=== PATIENT | male | born 1960 | race Caucasian/White ===

== ENCOUNTER 2023-01-11 06:21 | Emergency (ER) | payer MEDICARE, SELFPAY ==
[2023-01-11 06:22] VITALS: BP 102/62; PULSE 95; RESP 16; TEMP 37.1; O2SAT 95; BMI 37.0
--- NOTE | 2023-01-11 07:14 | VDLE_ITS ---
Reason For Study: BLE Edema RIGHT LEFT GSV is normal. GSV is normal. CFV is compressible, spontaneous, phasic, CFV is compressible, spontaneous, phasic, competent and demonstrates normal competent, and demonstrates normal augmentation. augmentation. FV is compressible, phasic, and INCOMPETENT FV is compressible, spontaneous, phasic, for greater than 1.0 second. competent and demonstrates normal POP V is compressible, spontaneous, phasic, augmentation. competent and demonstrates normal POP V is compressible, spontaneous, phasic, augmentation. competent and demonstrates normal T/P Trunk is compressible. augmentation. PTV is compressible. T/P Trunk is compressible. RT PerV is compressible. PTV is compressible. Pitting edema noted in Rt Calf. LT PerV is compressible. Procedure Pitting edema noted in Lt Calf. This is a venous duplex using B-mode, color flow and spectral Doppler. Exam performed portable in ED. The study was technically difficult. A preliminary report was called and/or faxed to ED TIER[facility] Ye. VL/Venous Duplex US - Gabriel Extrem Interpretation Summary No evidence for acute deep venous thrombosis bilateral lower extremities with p atent and compressible bilateral great saphenous veins. Incompetency of the right femoral vein noted. Edema noted bilateral calves Ordering Physician: Juan Hollins Referring Physician: Vj Centeno Performed By: Damien Ayala RVT
--- NOTE | 2023-01-11 07:14 | EKG12_ITS ---
Test Reason : Blood Pressure : / mmHG Vent. Rate : 077 BPM Atrial Rate : 077 BPM P-R Int : 166 ms QRS Dur : 158 ms QT Int : 442 ms P-R-T Axes : 037 024 187 degrees QTc Int : 500 ms Normal sinus rhythm with sinus arrhythmia Left bundle branch block Abnormal ECG Confirmed by PAULETTE TYSON, ILIA ([id number]), index editor MARYJANE LAZARO ([id number]) on 01/13/2023 1:11:00 PM Referred By: Confirmed By:ILIA CALDWELL MD
--- NOTE | 2023-01-11 07:16 | EDS_ITS ---
HPI History of Present Illness Chief Complaint: Edema Informant: patient and spouse/S.O. Narrative Narrative: 62-year-old male presenting to the emergency room with bilateral leg swelling. Patient has not really gotten any of his care here before. He has an extensive medical history. In brief he is a paraplegic with no sensation from the chest down. He has undergone multiple surgeries through [facility] and [facility] in [place]. He states that beginning last he noticed some swelling along some surgical incisions of the right posterior leg. This is now progressed to both legs and he feels that his abdomen is swollen which when he sits up is constricting his breathing. He notes he still laying flat at night. He has a Aguayo catheter and that he replaced this morning. He states that the urine has been may be less than normal. He thought perhaps this was infection so last Monday began taking Bactrim that he had leftover at home. He notes normal bowel movements. He denies a history of CHF and he denies any recent fevers. He has a couple chronic wounds that are being packed from prior surgeries on the right side of his abdomen leg. He does take chlorthalidone as he states that 2 years ago he had some mild swelling of his legs. He is on 25 mg once a day. He notes that his legs are twice the size of normal. The coloring of the right leg is very white which he states is chronic. He notes that the left lower leg is more red than normal. [facility] Medical History Accident at workplace Paraplegia, unspecified Presence of implanted infusion pump Home Medications amlodipine 10 mg tablet 10 mg PO DAILY 01/11/23 [History Last Taken Unknown] baclofen 10 mg tablet 5 mg PO BID 01/11/23 [History Last Taken Unknown] chlorthalidone 25 mg tablet 25 mg PO DAILY 01/11/23 [History Last Taken Unknown] diazepam 5 mg tablet 5 mg PO QHS PRN sleep 01/11/23 [History Last Taken Unknown] famotidine 40 mg tablet 20 mg PO DAILY 01/11/23 [History Last Taken Unknown] gabapentin 100 mg capsule 200 mg PO BID 01/11/23 [History Last Taken Unknown] silver sulfadiazine 1 % topical cream 1 applic topical DAILY 01/11/23 [History Last Taken Unknown] tizanidine 2 mg tablet 2 mg PO BID 01/11/23 [History Last Taken Unknown] tramadol 50 mg tablet 50 mg PO BID 01/11/23 [History Last Taken Unknown] Allergy/AdvReac Type Severity Reaction Status Date / Time No Known Allergies Allergy Verified 01/11/23 06:34 Social History Smoking Status: Never smoker ROS ROS ED Constitutional Constitutional ED: Denies chills or weight loss Eyes Eyes: Denies change in vision or diplopia ENT ENT ED: Denies ear pain, rhinorrhea or sore throat Cardiovascular Cardiovascular: Denies chest pain, orthopnea, palpitations or racing heartbeat Respiratory/Chest Respiratory/Chest: Reports dyspnea; Denies cough or orthopnea Gastrointestinal Gastrointestinal: Denies abdominal pain, diarrhea, nausea or vomiting Genitourinary Genitourinary ED: Denies dysuria, hematuria or urinary frequency Musculoskeletal Musculoskeletal: Reports other Details: Lower extremity swelling ; Denies arthralgias or myalgias Integumentary Denies abscess or rash Neurologic Neurologic: Denies headache(s) or weakness Psychiatric Psychiatric: Denies anxiety, depression, suicidal ideation or suicidal thoughts Endocrine Endocrinology: Denies polydipsia, polyphagia or polyuria Allergic/Immunologic Allergic/Immunologic ED: Denies mouth swelling, tongue swelling or urticaria EXAM Physical Exam Const Vital Signs: 01/11/23 06:22 01/11/23 06:27 Temperature 98.7 F Temperature Source Oral Pulse Rate 95 Respiratory Rate 16 Respiratory Effort Normal Blood Pressure 102/62 Blood Pressure Mean 75 Pulse Ox 95 Oxygen Delivery Method Room Air Positive well nourished, well developed and obese General Appearance ED: well developed Nutritional Appearance: obese HEENT Reports normocephalic, head/scalp atraumatic and moist mucous membranes Eyes PERRL and EOMs intact bilaterally Neck no lymphadenopathy, supple and no JVD Resp normal respiratory effort and clear to auscultation bilaterally Cardio regular rate, regular rhythm and no murmurs GI normal to inspection, nondistended, normoactive bowel sounds and non-tender Palpation: soft Back/Spine no CVA tenderness and normal ROM Extremity Extremity Narrative: The right leg is white compared to the left but again he states that this is ch ronic. It is warm to the touch. The left leg shows some erythema that does not resolve with elevation however it does appear to be more capillary/petechial then erythema female from infection. He has chronic wounds on the right leg and the right abdomen. There is edema posteriorly noted. Do not see anasarca tissue changes of the abdomen. There is no scrotal edema. General Extremety ED: Yes edema General Extremity: edema bilateral Neuro oriented x3 and CN's II-XII intact bilaterally Sensorium / Orientation: alert Psych mental status grossly normal Mood & Affect: Negative for depressed or tearful Skin no rashes or lesions noted MDM MDM MDM Narrative Medical decision making narrative: Blood work including beta natruretic peptide and troponin chest x-ray EKG were ordered. Urinalysis will be sent and duplex ultrasound will be obtained. Care of the patient will be turned over to the daytime physician Dr. Pablo for check of labs and final disposition. Discharge Plan Triage Chief Complaint: Edema ED Provider: Juan Hollins Dx/Rx/DC Orders Prescriptions: No Action amlodipine 10 mg tablet 10 mg PO DAILY Patient Comments: TAKE ONE TABLET BY MOUTH ONCE DAILY baclofen 10 mg tablet 5 mg PO BID Patient Comments: TAKE 1/2 TABLET BY MOUTH TWICE DAILY chlorthalidone 25 mg tablet 25 mg PO DAILY Patient Comments: TAKE ONE TABLET BY MOUTH ONCE DAILY diazepam 5 mg tablet 5 mg PO QHS PRN (Reason: sleep) Patient Comments: TAKE ONE TABLET BY MOUTH ONCE DAILY NEEDED famotidine 40 mg tablet 20 mg PO DAILY Patient Comments: TAKE ONE TABLET BY MOUTH DAILY AT BEDTIME gabapentin 100 mg capsule 200 mg PO BID Patient Comments: TAKE TWO CAPSULES BY MOUTH TWICE DAILY silver sulfadiazine 1 % cream 1 applic TOPICAL DAILY Patient Comments: APPLY TO THE AFFECTED AREA(S) ONCE DAILY FOR 21 DAYS tizanidine 2 mg tablet 2 mg PO BID Patient Comments: TAKE ONE TABLET BY MOUTH TWICE DAILY tramadol 50 mg tablet 50 mg PO BID Patient Comments: TAKE ONE TABLET BY MOUTH TWICE DAILY NEEDED FOR PAIN FOR UP TO 90 DAYS Primary Care Provider: Vj Centeno Referrals: Vj Centeno MD [Primary Care Provider] -
[2023-01-11 07:35] LABS: Absolute Lymphocyte Count 0.96 X10^3/uL (0.83-4.51); Absolute Neutrophil Count 10.2 X10^3/uL (2.0-7.7); Basophil# 0.03 X10^3/uL; Basophil% 0.3 % (0-1); Eosinophil# 0.12 X10^3/uL; Hematocrit 26.9 % (40-54); Hemoglobin 8.2 g/dL (13.0-16.5); Lymphocyte # 0.96 X10^3/ul (0.83-4.51); Mean Corp Hgb Conc 30.5 g/dL (32-36); Mean Corpuscular Hgb 26.6 pg (27.0-32.0); Mean Corpuscular Volume 87.3 fL (80-94); Mean Platelet Vol. 9.4 fl (6.2-12.0); Monocyte# 0.34 X10^3/uL; Monocyte% 2.8 % (0-10); NRBC Flagged by Analyzer 0.3 % (0-5); Neutrophil # 10.21 X10^3/uL (2.7-7.7); Neutrophil % 85.6 % (47-70); Platelet Count 390 K/mm3 (150-450); RBC Distribution Width CV 19.9 % (11.6-14.6); RBC Distribution Width SD 63.7 fl (35.1-43.9); Red Blood Count 3.08 M/mm3 (4.6-6.2); White Blood Count 11.9 K/mm3 (4.4-11.0)
--- NOTE | 2023-01-11 07:56 | RAD_ITS ---
STUDY: X-RAY CHEST REASON FOR EXAM: Male, 62 years old. Dyspnea TECHNIQUE: Single AP portable view of the chest. COMPARISON: None. FINDINGS: EKG electrodes are seen. Mild degree of vascular congestion. There is no demonstrated pleural abnormality. Normal size heart. Normal mediastinum and alysa. Normal visualized pulmonary arteries. There is atherosclerotic tortuosity of the aortic arch and descending thoracic aorta. Normal visualized thoracic spine. Normal visualized ribs, clavicles, and shoulders. Hiatal hernia. RAD/Chest 1 View (Portable) IMPRESSION: Mild degree of vascular congestion. Electronically Signed: Joseph Flores MD at 8:17 EDT ,
--- NOTE | 2023-01-11 07:57 | ED.RN ---
Leg bag removed and new haddad bag applied. Urine obtained and sent to lab.
[2023-01-11 08:02] LABS: Bacteria 0 SEEN /hpf (None Seen); Mucous, Urine 0 SEEN /hpf (<or=2+)
[2023-01-11 08:07] LABS: Color, Urine Yellow (Yellow); Glucose, Dipstick Normal (Normal); Ketone-Dipstick Negative (Negative); Leukocyte Esterase-Dipstick 100 /ul (Negative); Nitrite-Dipstick Negative (Negative); Occult Blood-Urine 10 /ul (Negative); Protein-Dipstick 30 mg/dl (Negative); Urine Bilirubin Dipstick Negative (Negative); Urine Clarity Clear (Clear); Urine Urobilinogen 8 mg/dl (Normal)
[2023-01-11 08:16] LABS: Red Blood Cells-Urine 0-5 SEEN /hpf (0-5); Squamous Epithelial Cells - UA 0-5 SEEN /hpf (0-5); White Blood Cells 10-25 SEEN /hpf (0-5)
[2023-01-11 08:19] LABS: AST(SGOT) 28 U/L (15-37); Alanine Aminotransfer ALT/SGPT 32 U/L (16-61); Albumin, Serum 1.8 g/dL (3.2-5.0); Alkaline Phosphatase 93 U/L (45-117); Anion Gap 9 (5-15); BUN 51 mg/dL (7-18); BUN/Creat Ratio 28.3 RATIO (10-20); Bilirubin, Direct 0.06 mg/dL (0.00-0.30); Calcium,Total 9.7 mg/dL (8.5-10.1); Chloride 100 mmol/L (98-107); EST Glomerular Filtration Rate 41 mL/min (>60); Est Glom Filt Rate - Afr Amer 49 mL/min (>60); Globulin 4.7 g/dL (2.2-4.2); Glucose 84 mg/dL (74-106); Protein, Total 6.5 g/dL (6.4-8.2); Sodium Level 137 mmol/L (136-145); Troponin-I HS 25 pg/mL (3.0-78.0)
[2023-01-11 08:33] LABS: BNP,B-Type NATRIURETIC PEPTIDE 111.3 pg/mL (0-100)
[2023-01-11] MEDS: Furosemide 40 MG/4 ML Vial IV (09:39)
[2023-01-11 09:40] VITALS: BP 119/57; PULSE 16; RESP 12; O2SAT 98
== END 2023-01-11 09:41 | disposition home or self-care (01) ==
PROVIDERS: Emergency Provider Emergency Medicine; PCP Family Medicine; Visit Provider Emergency Medicine
DX: M79.89 Other specified soft tissue disorders (principal); I50.9 Heart failure, unspecified; E66.9 Obesity, unspecified; Z79.899 Other long term (current) drug therapy
CPT/HCPCS: 71045; 80048; 80076; 81001; 83880; 84484; 85025; 93005; 93970; 96374; 99284; A4216; J1940

== ENCOUNTER 2023-01-14 20:26 | Inpatient (IN) | payer MEDICARE, SELFPAY ==
[2023-01-14 20:27] VITALS: BP 119/69; PULSE 117; RESP 20; TEMP 36.6; O2SAT 97
--- NOTE | 2023-01-14 21:07 | EX.ED.DYSGE1 ---
HPI History of Present Illness Chief Complaint: Edema Narrative Narrative: Patient presents with bilateral lower extremity edema. He was seen recently ruled out for DVT and CHF given Lasix and sent home incidentally he did have hypoalbuminemia. He is unfortunate paraplegic for 30 years who usually transfers relatively well in and out of chairs but because of his edema and weakness. [facility] Medical History Accident at workplace Paraplegia, unspecified Presence of implanted infusion pump Home Medications amlodipine 10 mg tablet 10 mg PO DAILY 01/11/23 [History Last Taken Unknown] baclofen 10 mg tablet 5 mg PO BID 01/11/23 [History Last Taken Unknown] chlorthalidone 25 mg tablet 25 mg PO DAILY 01/11/23 [History Last Taken Unknown] diazepam 5 mg tablet 5 mg PO QHS PRN sleep 01/11/23 [History Last Taken Unknown] famotidine 40 mg tablet 20 mg PO DAILY 01/11/23 [History Last Taken Unknown] furosemide 40 mg tablet (Lasix) 40 mg PO DAILY #4 tabs 01/11/23 [Rx Last Taken Unknown] gabapentin 100 mg capsule 200 mg PO BID 01/11/23 [History Last Taken Unknown] silver sulfadiazine 1 % topical cream 1 applic topical DAILY 01/11/23 [History Last Taken Unknown] tizanidine 2 mg tablet 2 mg PO BID 01/11/23 [History Last Taken Unknown] tramadol 50 mg tablet 50 mg PO BID 01/11/23 [History Last Taken Unknown] Allergy/AdvReac Type Severity Reaction Status Date / Time No Known Allergies Allergy Verified 01/14/23 20:30 Social History Smoking Status: Never smoker ROS ROS ED ROS Narrative Past medical history: Reviewed Medications: Reviewed Social history: Noncontributory Review of systems: All systems negative except as indicated General: No fever Eyes: No visual changes ENT: No upper airway congestion, normal voice Neck: No neck pain Cardiovascular: No chest pain Respiratory: No shortness of breath or cough Gastrointestinal: No abdominal pain, nausea vomiting or diarrhea Genitourinary: No dysuria Musculoskeletal: Trauma edema Skin: No rash Neurological: No memory loss, confusion or any focal weakness chronic lower extremity weakness Psych: No recent behavioral changes Hematologic: No easy bleeding or easy bruising EXAM Physical Exam Narrative Exam Narrative: Physical exam General: Patient appears relatively comfortable. Head: Normocephalic, Atraumatic Eyes: Conjunctiva not pale ENT: Moist mucous membranes Neck: Supple, Nontender, No lymphadenopathy Cardiovascular: Regular rate, Regular rhythm Respiratory: No distress, CTA bilaterally Abdomen: Soft, Nontender, Nondistended Back: Nontender, Normal Inspection. Negative for: CVA tenderness Extremities: Significant bilateral lower extremity edema right greater than left. Skin: No signs of cellulitis Neurological: Movement in lower extremities Const Vital Signs: 01/14/23 20:27 Temperature 97.8 F Temperature Source Temporal Pulse Rate 117 H Respiratory Rate 20 H Blood Pressure 119/69 Blood Pressure Mean 85 Pulse Ox 97 Oxygen Delivery Method Room Air MDM MDM MDM Narrative Medical decision making narrative: DVT study a few days ago I will not repeated. There is no evidence of CHF and he has no shortness of breath. He is found to have hypoalbuminemia. This may cause some of his symptoms. Because of his weakness and inability to transfer because of the swelling I will admit him. I talked to his also given the history and agrees. I will discuss with hospitalist for admission. Believe x-rays are needed. Discharge Plan Triage Chief Complaint: Edema ED Provider: Tex Elizalde Dx/Rx/DC Orders Clinical Impression: Paraplegia, CHF (congestive heart failure), Lymphedema, Hypoalbuminemia Prescriptions: No Action amlodipine 10 mg tablet 10 mg PO DAILY Patient Comments: TAKE ONE TABLET BY MOUTH ONCE DAILY baclofen 10 mg tablet 5 mg PO BID Patient Comments: TAKE 1/2 TABLET BY MOUTH TWICE DAILY chlorthalidone 25 mg tablet 25 mg PO DAILY Patient Comments: TAKE ONE TABLET BY MOUTH ONCE DAILY diazepam 5 mg tablet 5 mg PO QHS PRN (Reason: sleep) Patient Comments: TAKE ONE TABLET BY MOUTH ONCE DAILY NEEDED famotidine 40 mg tablet 20 mg PO DAILY Patient Comments: TAKE ONE TABLET BY MOUTH DAILY AT BEDTIME gabapentin 100 mg capsule 200 mg PO BID Patient Comments: TAKE TWO CAPSULES BY MOUTH TWICE DAILY silver sulfadiazine 1 % cream 1 applic TOPICAL DAILY Patient Comments: APPLY TO THE AFFECTED AREA(S) ONCE DAILY FOR 21 DAYS tizanidine 2 mg tablet 2 mg PO BID Patient Comments: TAKE ONE TABLET BY MOUTH TWICE DAILY tramadol 50 mg tablet 50 mg PO BID Patient Comments: TAKE ONE TABLET BY MOUTH TWICE DAILY NEEDED FOR PAIN FOR UP TO 90 DAYS furosemide [Lasix] 40 mg tablet 40 mg PO DAILY Qty: 4 0RF Primary Care Provider: Vj Centeno Referrals: Vj Centeno MD [Primary Care Provider] - Disposition Disposition: Acute Care Hospital [facility]
[2023-01-14 21:22] VITALS: BMI 36.5
[2023-01-14 21:38] LABS: Absolute Lymphocyte Count 1.27 X10^3/uL (0.83-4.51); Absolute Neutrophil Count 9.5 X10^3/uL (2.0-7.7); Basophil# 0.05 X10^3/uL; Basophil% 0.4 % (0-1); Eosinophil# 0.15 X10^3/uL; Eosinophils% 1.2 % (0-5); Hematocrit 26.7 % (40-54); Hemoglobin 8.2 g/dL (13.0-16.5); Lymphocyte # 1.27 X10^3/ul (0.83-4.51); Lymphocyte % 10.5 % (19-41); Mean Corp Hgb Conc 30.7 g/dL (32-36); Mean Corpuscular Volume 87.8 fL (80-94); Mean Platelet Vol. 9.8 fl (6.2-12.0); Monocyte# 0.57 X10^3/uL; Monocyte% 4.7 % (0-10); NRBC Flagged by Analyzer 0 % (0-5); Neutrophil # 9.49 X10^3/uL (2.7-7.7); Neutrophil % 78.3 % (47-70); Platelet Count 471 K/mm3 (150-450); RBC Distribution Width CV 19.6 % (11.6-14.6); RBC Distribution Width SD 63.7 fl (35.1-43.9); Red Blood Count 3.04 M/mm3 (4.6-6.2); White Blood Count 12.1 K/mm3 (4.4-11.0)
[2023-01-14 22:12] LABS: ALB/GLOB Ratio 0.4 RATIO (0.9-2.4); AST(SGOT) 42 U/L (15-37); Alanine Aminotransfer ALT/SGPT 36 U/L (16-61); Albumin, Serum 1.9 g/dL (3.2-5.0); Alkaline Phosphatase 100 U/L (45-117); Anion Gap 7 (5-15); BUN 30 mg/dL (7-18); BUN/Creat Ratio 25.9 RATIO (10-20); Calcium,Total 9.3 mg/dL (8.5-10.1); Chloride 98 mmol/L (98-107); Creatinine, Serum 1.16 mg/dL (0.70-1.30); EST Glomerular Filtration Rate 68 mL/min (>60); Est Glom Filt Rate - Afr Amer 82 mL/min (>60); Estimated Creatinine Clearance 71.54 ml/min; Globulin 5.4 g/dL (2.2-4.2); Glucose 97 mg/dL (74-106); Potassium 3.5 mmol/L (3.5-5.1); Protein, Total 7.3 g/dL (6.4-8.2); Sodium Level 132 mmol/L (136-145)
--- NOTE | 2023-01-14 22:25 | PCM.HP.STD ---
HPI - General General Date of Admission: 01/14/23 Date of Service: 01/14/23 Chief Complaint: Weakness, debility, BL LE edema. HPI Narrative The patient is a 62 y/o M w/ PMHx: Hx Trauma with paraplegia with no sensation from the chest down status post multiple surgeries at [facility] in [facility] to the lower extremities with a chronic Aguayo catheter as well as chronic wounds to the right side of the abdomen as well as leg which he packs, GERD, HTN, recent 01/11/2023 ED evaluation secondary to bilateral lower extremity swelling specifically along surgical incisions of the right posterior leg which is progressed with swelling up into his abdomen with recent reported concern for possible UTI prompting him to start some leftover Bactrim that he had at home with no fevers or chills but given ongoing symptoms prompted the evaluation with EKG was sinus rhythm with left bundle branch block, chest x-ray with mild fluid overload, negative bilateral lower extremity duplex ultrasounds with recommendation for snug Cedric wraps with elevation and a short course of Lasix with lower extremity erythema felt consistent with venous stasis disease with discharge to home who now represents to the [facility] ED on 01/14/23 with history of ongoing lower extremity swelling and increased weakness prompting ED return with right greater than left edema to the lower extremities. Patient during evaluation states that patient for several weeks has started taking Marbin Tapee Tea which has considerable amount of steroids in it as well as other agents which was recommended to be discontinued. Patient does report occasional hemorrhoidal bleeding but denies any significant black or tarry appearing stools. He denies any recent hemorrhoidal bleeding. Work-up in the ED included T97.8, heart rate 117, BP 119/69, respiratory rate 20, 97% on room air, CBC with WC 12.1, hemoglobin 8.2, MCV 87.8, platelet 471 with left shift, CMP with sodium 132, BUN/creatinine 30/1.16, AST 42 otherwise hepatic profile not marked appearing although albumin is low 1.9 and had been previously as well. [facility] Medical History (Updated 01/14/23 @ 23:[address] Lauren Loco MD) Accident at workplace Chronic anemia GERD (gastroesophageal reflux disease) Hypertension Obesity Paraplegia, unspecified Home Medications amlodipine 10 mg tablet 10 mg PO DAILY 01/11/23 [History Last Taken Unknown] baclofen 10 mg tablet 5 mg PO BID 01/11/23 [History Last Taken Unknown] chlorthalidone 25 mg tablet 25 mg PO DAILY 01/11/23 [History Last Taken Unknown] diazepam 5 mg tablet 5 mg PO QHS PRN sleep 01/11/23 [History Last Taken Unknown] famotidine 40 mg tablet 20 mg PO DAILY 01/11/23 [History Last Taken Unknown] furosemide 40 mg tablet (Lasix) 40 mg PO DAILY #4 tabs 01/11/23 [Rx Last Taken Unknown] gabapentin 100 mg capsule 200 mg PO BID 01/11/23 [History Last Taken Unknown] silver sulfadiazine 1 % topical cream 1 applic topical DAILY 01/11/23 [History Last Taken Unknown] tizanidine 2 mg tablet 2 mg PO BID 01/11/23 [History Last Taken Unknown] tramadol 50 mg tablet 50 mg PO BID 01/11/23 [History Last Taken Unknown] Allergy/AdvReac Type Severity Reaction Status Date / Time No Known Allergies Allergy Verified 01/14/23 20:30 Family History (Updated 01/14/23 @ 23:[address] Lauren Loco MD) Father CAD (coronary artery disease) Heart disease Hypertension Mother No problems noted. Surgical History (Updated 01/14/23 @ 23:[address] Lauren Lcoo MD) History of back surgery History of skin surgery History of surgery on lower extremity S/P appendectomy Social History (Updated 01/14/23 @ 23:[address] Lauren Loco MD) household members: spouse Smoking Status: Never smoker alcohol intake: never substance use type: does not use ROS ROS Narrative Admission Review of Systems: CONSTITUTIONAL: No weight loss, fever, chills, + weakness or fatigue. HEENT: Eyes: No visual loss, blurred vision, double vision or yellow sclerae. Ears, Nose, Throat: No hearing loss, sneezing, congestion, runny nose or sore throat. SKIN: + Bilateral lower extremity stasis skin changes, stasis ulcers, abdominal fold chronic wounds. CARDIOVASCULAR: + Worsening peripheral edema. No chest pain, chest pressure or chest discomfort, palpitations, orthopnea, syncopal events. RESPIRATORY: No shortness of breath, cough or sputum, wheezing, hemoptysis. GASTROINTESTINAL: No anorexia, nausea, vomiting or diarrhea, abdominal pain, melena, BRBPR. GENITOURINARY: No dysuria, frequency, urgency or retention. NEUROLOGICAL: + Status post logging accident with chronic paraplegia, lack of sensation chest downward, no headache, dizziness, syncope, change in bowel or bladder control, seizure. MUSCULOSKELETAL: + muscle, back pain, joint pain or stiffness. HEMATOLOGIC: + anemia, notes some episodes of hemorrhoidal bleeding but none currently. LYMPHATICS: No enlarged nodes. No history of splenectomy. PSYCHIATRIC: No history of depression or anxiety. ENDOCRINOLOGIC: No reports of sweating, cold or heat intolerance. No polyuria or polydipsia. ALLERGIES: No history of asthma, hives, eczema or rhinitis. Vital Signs Vital Signs Vital Signs: 01/14/23 20:27 01/14/23 21:28 Temperature 97.8 F Temperature Source Temporal Pulse Rate 117 H Respiratory Rate 20 H Respiratory Pattern Normal Blood Pressure 119/69 Blood Pressure Mean 85 Pulse Ox 97 Oxygen Delivery Method Room Air Weight Weight: 269 lb 13.533 oz Body Mass Index (BMI) 36.5 Physical Exam Narrative Physical Examination: General: Awake, alert, oriented x 3 and cooperative, seated upright in the ED bed, fatigued, pale appearing. Skin: Pale color, normal turgor, no icterus, no cyanosis, bilateral lower extremity stasis skin changes, stasis blisters, groin fold chronic wounds some more peripheral and notably right lateral with granulated base with no marked discharge with some undermining. HEENT: AT/NC, EOMI, PERRLA, MMM, no carotid bruits, difficult to assess JVD given thickened neck. Lungs: Diminished, greater bases, distant, no evidence of any distress, no appreciated rales, ronchi or wheezing. Heart: Tachycardic with regular rhythm; no gallop, rub audible. Abdomen: Soft, obese, NTTP, distant BS, unable to discern distention and HSM well given habitus. Extremities: No cyanosis, no clubbing, paraplegic history, significant pedal to upper bilateral proximal lower extremity pitting 3+ edema. Neurological: Patient awake, alert, oriented as noted, cognitive function intact; pupils equally reactive to light and accommodation, cranial nerves grossly normal, paraplegic following logging accident, strength severely globally decreased secondary to acute complaints and underlying chronic comorbidities. Psychiatric: Affect appears flat, fatigued, no acute evidence of depressive or anxiety feelings. Results Lab / Micro Data 01/14/23 21:20 01/14/23 21:20 Labs: Laboratory Results - last 24 hr 01/14/23 21:20: WBC 12.1 H, RBC 3.04 L, Hgb 8.2 L, Hct 26.7 L, MCV 87.8, MCH 27.0, MCHC 30.7 L, RDW Std Deviation 63.7 H, RDW Coeff of Rola 19.6 H, Plt Count 471 H, MPV 9.8, Immature Gran % (Auto) 4.900 H, Neut % (Auto) 78.3 H, Lymph % (Auto) 10.5 L, [place] % (Auto) 4.7, Eos % (Auto) 1.2, Baso % (Auto) 0.4, Absolute Neuts (auto) 9.5 H, Absolute Lymphs (auto) 1.27, Nucleated RBC % 0, Sodium 132 L, Potassium 3.5, Chloride 98, Carbon Dioxide 27.0, Anion Gap 7, BUN 30 H, Creatinine 1.16, Estim Creat Clear Calc 71.54, Est GFR (MDRD) Af Amer 82, Est GFR (MDRD) Non-Af 68, BUN/Creatinine Ratio 25.9 H, Glucose 97, Calcium 9.3, Total Bilirubin 0.50, AST 42 H, ALT 36, Alkaline Phosphatase 100, Total Protein 7.3, Albumin 1.9 L, Globulin 5.4 H, Albumin/Globulin Ratio 0.4 L Assessment & Plan Assessment/Plan (1) Adult failure to thrive: PLAN: Plan The patient is a 62 y/o M w/ PMHx: Hx Trauma with paraplegia with no sensation from the chest down status post multiple surgeries at [facility] in [facility] to the lower extremities with a chronic Aguayo catheter as well as chronic wounds to the right side of the abdomen as well as leg which he packs, GERD, HTN, recent 01/11/2023 ED evaluation secondary to bilateral lower extremity swelling specifically along surgical incisions of the right posterior leg which is progressed with swelling up into his abdomen with recent reported concern for possible UTI prompting him to start some leftover Bactrim that he had at home with no fevers or chills but given ongoing symptoms prompted the evaluation with EKG was sinus rhythm with left bundle branch block, chest x-ray with mild fluid overload, negative bilateral lower extremity duplex ultrasounds with recommendation for snug Cedric wraps with elevation and a short course of Lasix with lower extremity erythema felt consistent with venous stasis disease with discharge to home who now represents to the [facility] ED on 01/14/23 with history of ongoing lower extremity swelling and increased weakness. #1. Adult failure to thrive, multifactorial, given #2, #3, recent #4, complicated by history of trauma with paraplegia with chronic indwelling Aguayo catheter with chronic extremity/abdominal wounds: We will admit to medical surgical floor, will obtain procalcitonin be cautious but currently no obvious evidence of any infection with urinalysis 01/11/2023 not marked appearing, certainly underlying history of paraplegia complicates presentation, maintain on baclofen regimen as well as gabapentin and tizanidine, maintain on fall precautions, frequent positional changes, barrier cream, offloading, PT/OT/case management consultation for discharge planning. We will continue evaluation of acute on chronic anemia as well as lower extremity swelling as noted #2, #3. We will consult wound RN and will continue dressing changes. #2. Acute on Chronic normocytic anemia: [employer] records with hemoglobin 10.8 in November and hemoglobin 9.5 in August, current presentation with hemoglobin 8.2 which is the same from 01/11/2023 of note, MCV 87.8 but has been diuresed over the last several days but appearance of continued decline, to be cautious we will obtain iron panel, ferritin, guaiac and trend CBC as certainly could be contributing to his weakness and debility. #3. Progressively worsening bilateral lower extremity edema with Possible Underlying HF, Unclear type: Patient is paraplegic, do suspect likely lower extremities down frequently, recent duplex ultrasound negative for any DVT, will place neck Cedric wraps with elevation above the heart when laying in seated and will pulse dose with IV Lasix cautiously given renal function but given its his primary complaint and causing issues with any kind of transfer with continued close monitoring of renal function, will obtain BNP, will obtain ECHO, will obtain Mag, TSH, FLP, hold on ASA given #2 evaluation. Strongly encouraged avoidance of the Tapee tea he has been taking. #4. BEREKET, resolved since prior ED evaluation: Recent ED presentation 01/11/2023 with BUN/creatinine 51/1.80 with in the [facility] system noted creatinine 1.8 also in November but prior to this in August had been 0.85, and upon current presentation BUN/creatinine now improved 30/1.16 thus do suspect acute kidney injury with previous presentations. Given unfortunate ongoing significant lower extremity edema we will very cautiously start pulse dose Lasix but closely continue monitor renal function. #5. Hypertension: Given lower extremity swelling we will at this point discontinue Lovenox with plan pulse dose IV Lasix as noted, temporally hold chlorthalidone, as needed IV hydralazine. #6. GERD: We will continue patient on famotidine regimen. #7. DVT prophylaxis: SCDs, will defer chemoprophylaxis given appearance of worsening anemia pending guaiac evaluation as noted above. #8. CODE status: Patient BEN is his who is and living will is currently in place. Discussed CODE status at length including difference between FULL code, DNR-CCA and DNR-CC status. Following discussions about the differences in these status, requested DNR-CCA, no intubation. He and his spouse discussed and he notes that with the accident and how he has lived for the last several years he wants to pass naturally if it his time and the reports agreement although initially he believed her to be reticent. Advanced Care Planning Face to Face Time: 16 minutes. Charges/Coding Visit Charges Inpatient E&M: 57546 Init Hosp L3 Procedures Hospitalists Procedures: 64713 Advncd Care Plan 30 Min
[2023-01-14 23:04] LABS: Magnesium 1.8 mg/dL (1.6-2.6); Phosphorus 2.1 mg/dL (2.5-4.9)
[2023-01-14 23:12] LABS: BNP,B-Type NATRIURETIC PEPTIDE 47.6 pg/mL (0-100)
[2023-01-14 23:14] LABS: Procalcitonin 0.44 ng/mL (0.00-0.09)
[2023-01-14 23:22] VITALS: BP 156/66; PULSE 85; RESP 16; TEMP 36.3; O2SAT 94
[2023-01-14 23:32] VITALS: BMI 36.2
--- NOTE | 2023-01-14 23:32 | ECHOCS_ITS ---
Reason For Study: CHF Procedure This was a 2D Doppler, Color Flow transthoracic echocardiogram. The study was technically difficult. Contrast injection was performed. Exam performed portable in patient room. Left Ventricle Normal LV size. Left ventricular systolic function is normal. The estimated ejection fraction is 55 %. Stage 1 diastolic dysfunction. No regional wall motion abnormalities noted. Right Ventricle Normal RV size. Normal systolic function. Atria Normal left atrium. Mitral Valve Normal mitral valve. Tricuspid Valve Normal tricuspid valve. Aortic Valve The aortic valve is not well visualized in the short axis view. Mild (1+) aortic valve insufficiency. Pulmonic Valve The pulmonic valve is not well visualized. Great Vessels Normal aortic root. Pericardium/Pleural No pericardial effusion. Medication Diluted definity 2.5ml given slow IV push to enhance endocardial definition. MMode/2D Measurements & Calculations LVIDd: 5.0 cm IVSd: 1.1 cm Ao root diam: 3.7 cm LVIDs: 3.9 cm LVPWd: 1.4 cm FS: 23.2 % LAV(MOD-bp): 54.0 ml LA A4 area: 17.5 cm2 TAPSE: 1.8 cm LAV(MOD-bp) Indexed: 22.3 ml/m2 LAV(MOD-sp2): 60.6 ml LAV(MOD-sp4): 46.6 ml Time Measurements MV dec time: 0.25 sec Doppler Measurements & Calculations MV E max tai: 88.0 cm/sec Lat Peak E' Tai: 9.0 cm/sec Med Peak E' Tai: 5.1 cm/sec MV A max tai: 111.8 cm/sec E/E' lat: 9.8 E/E' med: 17.2 MV E/A: 0.79 MV V2 max: 128.6 cm/sec MV dec slope: 347.3 cm/sec2 Ao V2 max: 156.9 cm/sec MV max P.6 mmHg Ao max P.8 mmHg MV V2 mean: 70.6 cm/sec MV mean P.4 mmHg MV V2 VTI: 29.9 cm AI max tai: 404.0 cm/sec LV V1 max: 144.6 cm/sec PA V2 max: 95.9 cm/sec AI max P.4 mmHg LV V1 max P.4 mmHg AI dec slope: 157.8 cm/sec2 AI P1/2t: 749.7 msec ECHO/Echo Complete W/ Contrast Interpretation Summary Normal LV size. Left ventricular systolic function is normal. The estimated ejection fraction is 55 %. Stage 1 diastolic dysfunction. Contrast injection was performed. The study was technically difficult. Ordering Physician: Lauren Loco Performed By: Tra Zendejas RCS
[2023-01-14 23:45] VITALS: BP 135/66; PULSE 101; RESP 18; TEMP 37.2; O2SAT 96
[2023-01-15] VITALS (14 sets, daily range): BP systolic 87–134; BP diastolic 53–67; PULSE 60–110; RESP 16; TEMP 36.9–37.7; O2SAT 94–96; BMI 36.2; BMI 36.3
[2023-01-15] MEDS: Albumin Human 25% (100 mL) 25 GM/100 ML BAG IV (00:14)
[2023-01-15] MEDS: Furosemide 40 MG/4 ML Vial IV ×3 (00:16→17:20)
[2023-01-15] MEDS: tiZANidine HCl 2 MG Tablet PO ×3 (00:17→21:50)
[2023-01-15] MEDS: Baclofen 10 MG Tablet 5 MG PO ×3 (00:17→21:49)
[2023-01-15] MEDS: traMADol 50 MG Tablet PO ×3 (00:23→21:50)
[2023-01-15] MEDS: Gabapentin 100 MG Capsule 200 MG PO ×3 (00:23→21:49)
[2023-01-15] MEDS: 0.9% Saline Lock 10 ML Syringe IV ×2 (03:29→10:11)
[2023-01-15] MEDS: Metoprolol Tartrate 25 MG Tablet PO ×2 (03:31→21:49)
[2023-01-15 05:33] LABS: Hematocrit 22.5 % (40-54); Hemoglobin 6.8 g/dL (13.0-16.5); Mean Corp Hgb Conc 30.2 g/dL (32-36); Mean Corpuscular Hgb 26.7 pg (27.0-32.0); Mean Corpuscular Volume 88.2 fL (80-94); Mean Platelet Vol. 8.6 fl (6.2-12.0); POSITIVE COUNT YES; POSITIVE MORPHOLOGY YES; Platelet Count 434 K/mm3 (150-450); RBC Distribution Width CV 19.5 % (11.6-14.6); RBC Distribution Width SD 63.4 fl (35.1-43.9); Red Blood Count 2.55 M/mm3 (4.6-6.2); White Blood Count 9.9 K/mm3 (4.4-11.0)
[2023-01-15 05:34] LABS: Differential Indicated MANUAL DIFF
[2023-01-15 05:53] LABS: Troponin-I HS 17 pg/mL (3.0-78.0)
[2023-01-15 06:57] LABS: Eosinophil 2 % (0-5); Lymphocyte 16 % (19-41); Metamyelocyte 4 % (0-1); Monocyte 3 % (0-10); Myelocyte 1 % (0-0); Neutrophil-Band 1 % (0-5); Neutrophil-Segmented 73 % (47-70); Total Cells Counted 100 (MANUAL DIFF)
[2023-01-15 06:58] LABS: Absolute Lymphocyte Count 1.58 X10^3/uL (0.83-4.51); Lymphocyte # 1.58 X10^3/ul (0.83-4.51)
[2023-01-15 06:59] LABS: Absolute Neutrophil Count 7.8 X10^3/uL (2.0-7.7); Neutrophil # 7.81 X10^3/uL (2.7-7.7); Platelet Estimate ADEQUATE (ADEQ)
[2023-01-15 07:00] LABS: Anisocytosis 2+; Hypochromasia 1+; Macrocytosis 1+; Microcytosis 1+
[2023-01-15 07:01] LABS: Polychromasia RARE
[2023-01-15 07:44] LABS: Troponin-I HS 16 pg/mL (3.0-78.0)
[2023-01-15 08:20] LABS: ALB/GLOB Ratio 0.4 RATIO (0.9-2.4); AST(SGOT) 42 U/L (15-37); Alanine Aminotransfer ALT/SGPT 31 U/L (16-61); Albumin, Serum 1.9 g/dL (3.2-5.0); Alkaline Phosphatase 84 U/L (45-117); Anion Gap 11 (5-15); BUN 29 mg/dL (7-18); BUN/Creat Ratio 33.7 RATIO (10-20); Calcium,Total 8.7 mg/dL (8.5-10.1); Chloride 101 mmol/L (98-107); Cholesterol 114 mg/dL (200); Creatinine, Serum 0.86 mg/dL (0.70-1.30); EST Glomerular Filtration Rate 95 mL/min (>60); Est Glom Filt Rate - Afr Amer 115 mL/min (>60); Ferritin 448 ng/mL (26-388); Globulin 4.7 g/dL (2.2-4.2); Glucose 98 mg/dL (74-106); High Density Lipoprotein 23 mg/dL; Iron 27 ug/dL (65-175); Iron Binding Capacity,Total 190 ug/dL (250-450); PERCENT IRON SATURATION 14.2 % (15.0-55.0); Potassium 3.6 mmol/L (3.5-5.1); Protein, Total 6.6 g/dL (6.4-8.2); Sodium Level 136 mmol/L (136-145); Thyroid Stim Hormone (TSH) 1.41 uIU/mL (0.358-3.74); Triglycerides 107 mg/dL; Very Low Density Lipoprotein 21 mg/dL (5-40)
[2023-01-15] MEDS: Famotidine 20 MG Tablet PO (10:04)
[2023-01-15] MEDS: Silver Sulfadiazine 1% Crm 50 gm Bottle 1 APPLIC TOPICAL (10:05)
[2023-01-15 11:06] LABS: Troponin-I HS 17 pg/mL (3.0-78.0)
--- NOTE | 2023-01-15 12:08 | PCM.CONS.C ---
Assessment & Plan Assessment/Plan (1) Adult failure to thrive: (2) Hypoalbuminemia: (3) Paraplegia: (4) Lymphedema: PLAN: Plan 62-year-old patient who was recently seen in the ER on January 11, 2023 He had a history of trauma with paraplegia and has multiple surgeries with the [facility] Also has multiple other medical comorbidities had a history of GERD cardiac consultation because of bilateral lower extremity swelling. Along the surgical incisions of the right posterior leg. And also noted he had the abnormal EKG with EKG showed sinus rhythm with left bundle branch block. With a chest x-ray showing mild fluid overload. Further evaluation with the bilateral lower extremity duplex ultrasound was negative and being on Lasix has erythema and venous stasis. Patient was discharged from the ER and presented back complaining of the similar swelling of lower extremities also has anemia at this time with a hemoglobin lower requiring blood transfusion. He does not have any active chest pain. His medical background patient had accident at workplace with paraplegia Had chronic anemia hypertension morbid obesity and abnormal EKG with underlying left bundle branch block. Cardiac care plan recommendations; This patient has no prior cardiac history. 1. I reviewed all the current evaluation here in the hospital. Patient is status is DNR?CCA Due to underlying left bundle branch block will evaluate by echocardiogram to assess his LV function Once stable clinically and treated for the anemia and evaluated further underlying etiology Patient can be set up as an outpatient with the cardiology team to assist with Lexiscan sestamibi. I requested D-dimer level and if it is abnormal we will evaluate with a CT chest to assess for PE patient has been clinically stable I reviewed and discussed the current medication and the cardiac care plan with the patient, nursing staff as well as the at bedside. Diaz Saldaña MD,[facility] HPI Consult Data Date of Consult: 01/15/23 HPI Narrative Reason for Consultation: Bilateral lower extremity edema/evaluate for CHF HPI Narrative: JOCE PIPER, is a 62 M who presents [facility] Medical History (Updated 01/14/23 @ 23:[address] Lauren Loco MD) Accident at workplace Chronic anemia GERD (gastroesophageal reflux disease) Hypertension Obesity Paraplegia, unspecified Home Medications amlodipine 10 mg tablet 10 mg PO DAILY 01/11/23 [History Last Taken Unknown] baclofen 10 mg tablet 5 mg PO BID 01/11/23 [History Last Taken Unknown] chlorthalidone 25 mg tablet 25 mg PO DAILY 01/11/23 [History Last Taken Unknown] diazepam 5 mg tablet 5 mg PO QHS PRN sleep 01/11/23 [History Last Taken Unknown] famotidine 40 mg tablet 20 mg PO DAILY 01/11/23 [History Last Taken Unknown] furosemide 40 mg tablet (Lasix) 40 mg PO DAILY #4 tabs 01/11/23 [Rx Last Taken Unknown] gabapentin 100 mg capsule 200 mg PO BID 01/11/23 [History Last Taken Unknown] silver sulfadiazine 1 % topical cream 1 applic topical DAILY 01/11/23 [History Last Taken Unknown] tizanidine 2 mg tablet 2 mg PO BID 01/11/23 [History Last Taken Unknown] tramadol 50 mg tablet 50 mg PO BID 01/11/23 [History Last Taken Unknown] Allergy/AdvReac Type Severity Reaction Status Date / Time No Known Allergies Allergy Verified 01/14/23 20:30 Family History (Updated 01/14/23 @ 23:[address] Lauren Loco MD) Father CAD (coronary artery disease) Heart disease Hypertension Mother No problems noted. Surgical History (Updated 01/14/23 @ 23:[address] Lauren Loco MD) History of back surgery History of skin surgery History of surgery on lower extremity S/P appendectomy Social History (Updated 01/14/23 @ 23:[address] Lauren Loco MD) household members: spouse Smoking Status: Never smoker alcohol intake: never substance use type: does not use Physical Exam Cardio Cardio Narrative: Patient seen and evaluated today at bedside along with the nursing staff at bedside at time of evaluation. Review of the policy loan calculator showed underlying normal sinus rhythm. Patient has paraplegia. He is alert orientated Does not have any active symptoms of chest pain Cardiac exam S1-S2 regular No systolic or diastolic murmur Chest examination diminished air entry bilateral. No appreciated rales rhonchi or wheezing on the chest examination. Examination lower extremity no cyanosis, no clubbing pitting edema +3 bilateral lower extremities. Risk Stratification Risk Stratification Applicable: No Objective Data Vital Signs: Vital Signs Temp Pulse Resp BP Pulse Ox O2 Del Method 98.4 F 96 16 110/60 96 Room Air 01/15/23 11:07 01/15/23 11:07 01/15/23 11:07 01/15/23 11:07 01/15/23 11:07 01/15/23 11:07 Oxygen Delivery Method Room Air Weight: 268 lb 4.841 oz Body Mass Index (BMI) 36.3 Intake & Output: Intake and Output for Last 24 Hours 01/13/23 01/14/23 01/15/23 23:59 23:59 23:59 Intake Total 120 / 120 100 / 100 Output Total 200 / 200 1825 / 1825 Balance -80 / -80 -1725 / -1725 Lab / Micro Data 01/15/23 05:15 01/15/23 05:15 Labs: Laboratory Results - last 24 hr 01/14/23 21:20: WBC 12.1 H, RBC 3.04 L, Hgb 8.2 L, Hct 26.7 L, MCV 87.8, MCH 27.0, MCHC 30.7 L, RDW Std Deviation 63.7 H, RDW Coeff of Rola 19.6 H, Plt Count 471 H, MPV 9.8, Immature Gran % (Auto) 4.900 H, Neut % (Auto) 78.3 H, Lymph % (Auto) 10.5 L, [place] % (Auto) 4.7, Eos % (Auto) 1.2, Baso % (Auto) 0.4, Absolute Neuts (auto) 9.5 H, Absolute Lymphs (auto) 1.27, Nucleated RBC % 0, Sodium 132 L, Potassium 3.5, Chloride 98, Carbon Dioxide 27.0, Anion Gap 7, BUN 30 H, Creatinine 1.16, Estim Creat Clear Calc 71.54, Est GFR (MDRD) Af Amer 82, Est GFR (MDRD) Non-Af 68, BUN/Creatinine Ratio 25.9 H, Glucose 97, Calcium 9.3, Total Bilirubin 0.50, AST 42 H, ALT 36, Alkaline Phosphatase 100, Total Protein 7.3, Albumin 1.9 L, Globulin 5.4 H, Albumin/Globulin Ratio 0.4 L 01/14/23 22:32: Phosphorus 2.1 L, Magnesium 1.8, B-Natriuretic Peptide 47.6 01/14/23 22:40: Procalcitonin 0.44 H 01/15/23 05:15: WBC 9.9, RBC 2.55 L, Hgb 6.8 L, Hct 22.5 L, MCV 88.2, MCH 26.7 L, MCHC 30.2 L, RDW Std Deviation 63.4 H, RDW Coeff of Rola 19.5 H, Plt Count 434, MPV 8.6, Neut % (Auto) Not Reportable, Absolute Neuts (auto) 7.8 H, Absolute Lymphs (auto) 1.58, Total Counted 100, Neutrophils % (Manual) 73 H, Band Neutrophils % 1, Lymphocytes % (Manual) 16 L, Monocytes % (Manual) 3, Eosinophils % (Manual) 2, Metamyelocytes % 4 H, Myelocytes % 1 H, Diff Path Review September, Platelet Estimate ADEQUATE, Polychromasia RARE, Hypochromasia 1+, Anisocytosis 2+, Microcytosis 1+, Macrocytosis 1+, Sodium 136, Potassium 3.6, Chloride 101, Carbon Dioxide 24.0, Anion Gap 11, BUN 29 H, Creatinine 0.86, Estim Creat Clear Calc 96.50, Est GFR (MDRD) Af Amer 115, Est GFR (MDRD) Non-Af 95, BUN/Creatinine Ratio 33.7 H, Glucose 98, Calcium 8.7, Iron 27 L, TIBC 190 L, Iron Saturation 14.2 L, Ferritin 448 H, Total Bilirubin 0.50, AST 42 H, ALT 31, Alkaline Phosphatase 84, Troponin I High Sens 17, Total Protein 6.6, Albumin 1.9 L, Globulin 4.7 H, Albumin/Globulin Ratio 0.4 L, Triglycerides 107, Cholesterol 114, LDL Cholesterol 70, VLDL Cholesterol 21, HDL Cholesterol 23 L, Folate 29.70, TSH 1.41 01/15/23 07:20: Troponin I High Sens 16 01/15/23 10:30: Troponin I High Sens 17, Blood Type O POSITIVE, Antibody Screen NEGATIVE, Crossmatch See Detail Cardiology Labs/Tests 01/14/23 21:20: WBC 12.1 H, RBC 3.04 L, Hgb 8.2 L, Hct 26.7 L, MCV 87.8, MCH 27.0, MCHC 30.7 L, Plt Count 471 H, MPV 9.8, Immature Gran % (Auto) 4.900 H, Neut % (Auto) 78.3 H, Lymph % (Auto) 10.5 L, [place] % (Auto) 4.7, Eos % (Auto) 1.2, Baso % (Auto) 0.4, Absolute Neuts (auto) 9.5 H, Nucleated RBC % 0, Sodium 132 L, Potassium 3.5, Chloride 98, Carbon Dioxide 27.0, Anion Gap 7, BUN 30 H, Creatinine 1.16, Est GFR (MDRD) Af Amer 82, Est GFR (MDRD) Non-Af 68, BUN/Creatinine Ratio 25.9 H, Glucose 97, Calcium 9.3, Total Bilirubin 0.50 01/14/23 22:32: Phosphorus 2.1 L, Magnesium 1.8, B-Natriuretic Peptide 47.6 01/15/23 05:15: WBC 9.9, RBC 2.55 L, Hgb 6.8 L, Hct 22.5 L, MCV 88.2, MCH 26.7 L, MCHC 30.2 L, Plt Count 434, MPV 8.6, Neut % (Auto) Not Reportable, Absolute Neuts (auto) 7.8 H, Total Counted 100, Neutrophils % (Manual) 73 H, Band Neutrophils % 1, Lymphocytes % (Manual) 16 L, Monocytes % (Manual) 3, Eosinophils % (Manual) 2, Metamyelocytes % 4 H, Myelocytes % 1 H, Sodium 136, Potassium 3.6, Chloride 101, Carbon Dioxide 24.0, Anion Gap 11, BUN 29 H, Creatinine 0.86, Est GFR (MDRD) Af Amer 115, Est GFR (MDRD) Non-Af 95, BUN/Creatinine Ratio 33.7 H, Glucose 98, Calcium 8.7, Iron 27 L, TIBC 190 L, Iron Saturation 14.2 L, Ferritin 448 H, Total Bilirubin 0.50, Triglycerides 107, Cholesterol 114, LDL Cholesterol 70, VLDL Cholesterol 21, HDL Cholesterol 23 L Rhythm: EKG: ECHO: Stress Test: Cardiac Cath: PCI: CT Surgery: Holter monitor: EPS: PPM: CXR: Chest CT Scan:
[2023-01-15 13:24] LABS: D-Dimer Quantitative (DVT/PE) 4.24 FEU/ug/m (0.27-0.49)
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
[2023-01-15] MEDS: Juven (unflavored) Packet 1 PACKET PO (17:20)
[2023-01-15] MEDS: Ensure Plus High Protein 120 ML LIQUID PO ×2 (17:21→21:49)
--- NOTE | 2023-01-15 20:59 | EKG12_ITS ---
Test Reason : ADMIT EKG Blood Pressure : / mmHG Vent. Rate : 090 BPM Atrial Rate : 090 BPM P-R Int : 170 ms QRS Dur : 158 ms QT Int : 378 ms P-R-T Axes : 025 000 159 degrees QTc Int : 462 ms Sinus rhythm with Premature supraventricular complexes Left bundle branch block Abnormal ECG Confirmed by SUNG SARKAR ([id number]), news video editor MARYJANE LAZARO ([id number]) on 01/17/2023 1:31:00 PM Referred By: Confirmed By:SUNG SARKAR
[2023-01-15 22:21] LABS: Hematocrit 26.7 % (40-54); Hemoglobin 8.3 g/dL (13.0-16.5)
[2023-01-16] VITALS (10 sets, daily range): BP systolic 112–135; BP diastolic 56–79; PULSE 77–105; RESP 16–18; TEMP 36.8–37.9; O2SAT 93–95; BMI 36.3; BMI 36.4
--- NOTE | 2023-01-16 08:41 | CT_ITS ---
STUDY: CTA CHEST REASON FOR EXAM: Male, 62 years old. Elevated d-dimer. Paraplegia. RADIATION DOSAGE (If Supplied By Facility): CTDIvol = ( 16.22 ) mGy, DLP = ( 594.47 ) mGycm TECHNIQUE: The examination was performed with the intravenous administration of IV 100mL Isovue-370. Post-processing of the angiographic images was performed, with multiplanar reformation and 3D reconstruction. Individualized dose optimization techniques were used for this CT. COMPARISON: Comparison is made with prior chest radiograph dated January 11, 2023. FINDINGS: Normal enhancement of the main pulmonary artery and right and left pulmonary arteries. Normal enhancement of the bilateral peripheral pulmonary arteries. There is no demonstrated pulmonary embolism. Normal thoracic aorta and visualized great vessels. There is no demonstrated aortic dissection. There are calcifications of the coronary arteries. Normal mediastinum. Normal hilar regions. Normal visualized trachea and bronchi. The lungs are well expanded. Azygos lobe. This is a normal anatomical variant. Mild increased markings at the lung bases suggestive of scarring. Normal pleura. Normal chest wall structures. There are degenerative changes of thoracic spine. Deformity of the T1 vertebrae. Fatty infiltration of the liver. There is a 2.2 cm x 1.3 cm hypodense nodule in the peripheral lateral aspect of the right lobe of the liver suggestive of a small cyst. CT/CTA Chest W/WO Contrast IMPRESSION: No evidence of pulmonary embolism. Findings suggest some mild scarring at the lung bases. Electronically Signed: Joseph Flores MD at 9:55 EDT ,
[2023-01-16] MEDS: Juven (unflavored) Packet 1 PACKET PO ×2 (08:49→17:51)
[2023-01-16] MEDS: Ensure Plus High Protein 120 ML LIQUID PO ×4 (08:54→22:06)
--- NOTE | 2023-01-16 09:27 | PN.CARD_ITS ---
Subjective Subjective The patient was seen and evaluated. He has no complaints at this particular time. Objective Data Vital Signs: Vital Signs Temp Pulse Resp BP Pulse Ox O2 Del Method 98.2 F 79 16 130/73 H 95 Room Air 01/16/23 08:01 01/16/23 08:01 01/16/23 08:01 01/16/23 08:01 01/16/23 08:01 01/16/23 08:01 Oxygen Delivery Method Room Air Weight: 268 lb 15.423 oz Body Mass Index (BMI) 36.4 Intake & Output: Intake and Output for Last 24 Hours 01/14/23 01/15/23 01/16/23 23:59 23:59 23:59 Intake Total 120 / 120 760 / 760 0 / 0 Output Total 200 / 200 4625 / 4625 450 / 450 Balance -80 / -80 -3865 / -3865 -450 / -450 Lab / Micro Data 01/15/23 21:46 01/15/23 05:15 Labs: Laboratory Results - last 24 hr 01/15/23 10:30: Troponin I High Sens 17, Blood Type O POSITIVE, Antibody Screen NEGATIVE, Crossmatch See Detail 01/15/23 12:24: D-Dimer Quant (PE/DVT) 4.24 H* 01/15/23 21:46: Hgb 8.3 L, Hct 26.7 L Cardiology Labs/Tests 01/15/23 12:24: D-Dimer Quant (PE/DVT) 4.24 H* 01/15/23 21:46: Hgb 8.3 L, Hct 26.7 L Rhythm: EKG: ECHO: Stress Test: Cardiac Cath: PCI: CT Surgery: Holter monitor: EPS: PPM: CXR: Chest CT Scan: Physical Exam Const alert, oriented x3 and no apparent distress General Appearance: cooperative HEENT hearing grossly normal bilaterally Head and Scalp: atraumatic Eyes EOMs intact bilaterally Neck General: normal visual inspection Chest inspection of chest normal and palpation of chest normal Resp normal respiratory effort Auscultation: clear to auscultation bilaterally Cardio regular rate, regular rhythm, S1 normal heart sound and S2 normal heart sound Jugular Venous Distention: JVD GI normal to inspection, nondistended, normoactive bowel sounds Extremity normal capillary refill and no pedal edema Peripheral Pulses: Yes pulses 2+ throughout and femoral pulses present Skin no rashes or lesions noted Neuro oriented x3 and CN's II-XII intact bilaterally Psych Appearance: grossly normal and appropriate Assessment & Plan Assessment/Plan (1) Hypertension: PLAN: His blood pressure appears to be under good control at this time I would not suggest that we make any changes. He will continue the current medications. (2) CHF (congestive heart failure): PLAN: He had been admitted with a diagnosis of congestive heart failure. His natruretic peptide level was minimally elevated. It is back to normal. I would recommend that we obtain an echocardiogram and continue him on low-dose diuretic. No other major changes will be made from the cardiovascular standpoi nt I would not pursue any further testing. He is anemic and my suspicion is that his shortness of breath is likely secondary to his anemia. * Unless the echocardiogram demonstrates significant abnormalities I will recommend signing off. * * Thank you for allowing me to participate in the care of your patient. Please don't hesitate to call if any issues arise.
[2023-01-16] MEDS: Famotidine 20 MG Tablet PO (09:40)
[2023-01-16] MEDS: Gabapentin 100 MG Capsule 200 MG PO ×2 (09:40→22:12)
[2023-01-16] MEDS: Furosemide 40 MG/4 ML Vial IV ×2 (09:40→17:51)
[2023-01-16] MEDS: tiZANidine HCl 2 MG Tablet PO ×2 (09:40→22:07)
[2023-01-16] MEDS: Metoprolol Tartrate 25 MG Tablet PO ×2 (09:40→22:08)
[2023-01-16] MEDS: Baclofen 10 MG Tablet 5 MG PO ×2 (09:40→22:06)
[2023-01-16] MEDS: traMADol 50 MG Tablet PO ×2 (09:41→22:12)
[2023-01-16 10:14] LABS: Hematocrit 28.3 % (40-54); Hemoglobin 8.6 g/dL (13.0-16.5); Mean Corp Hgb Conc 30.4 g/dL (32-36); Mean Platelet Vol. 8.6 fl (6.2-12.0); POSITIVE COUNT YES; POSITIVE MORPHOLOGY YES; Platelet Count 490 K/mm3 (150-450); RBC Distribution Width CV 18.6 % (11.6-14.6); RBC Distribution Width SD 60.8 fl (35.1-43.9); Red Blood Count 3.18 M/mm3 (4.6-6.2); White Blood Count 9.5 K/mm3 (4.4-11.0)
[2023-01-16 10:18] LABS: Differential Indicated MANUAL DIFF
[2023-01-16 10:23] LABS: Anion Gap 4 (5-15); BUN 29 mg/dL (7-18); BUN/Creat Ratio 40.7 RATIO (10-20); Calcium,Total 9.3 mg/dL (8.5-10.1); Chloride 101 mmol/L (98-107); Creatinine, Serum 0.71 mg/dL (0.70-1.30); EST Glomerular Filtration Rate 119 mL/min (>60); Est Glom Filt Rate - Afr Amer 143 mL/min (>60); Estimated Creatinine Clearance 116.89 ml/min; Glucose 98 mg/dL (74-106); Potassium 3.3 mmol/L (3.5-5.1); Sodium Level 138 mmol/L (136-145)
[2023-01-16 11:08] LABS: Lymphocyte 10 % (19-41); Monocyte 2 % (0-10); Myelocyte 3 % (0-0); Neutrophil-Band 1 % (0-5); Neutrophil-Segmented 84 % (47-70); Total Cells Counted 100 (MANUAL DIFF)
[2023-01-16 11:09] LABS: Platelet Estimate ADEQUATE (ADEQ); Red Cell Morphology NORM C+C NORMAL (NORM C&C)
[2023-01-16 11:10] LABS: Absolute Lymphocyte Count 0.95 X10^3/uL (0.83-4.51); Absolute Neutrophil Count 8.1 X10^3/uL (2.0-7.7)
--- NOTE | 2023-01-16 11:28 | WOUNDNOTE ---
wound photo: right plantar heel
--- NOTE | 2023-01-16 11:29 | WOUNDNOTE ---
wound photo: left great toe
--- NOTE | 2023-01-16 11:30 | WOUNDNOTE ---
wound photo: mid lower abdomen
--- NOTE | 2023-01-16 11:31 | WOUNDNOTE ---
wound photo: right lateral abdomen/hip
[2023-01-16 12:44] LABS: Vitamin B12 1602 pg/mL (211-911)
[2023-01-16 13:09] LABS: Pathologist Review Reviewed
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
--- NOTE | 2023-01-16 15:47 | VDLE_ITS ---
Reason For Study: swelling RIGHT LEFT GSV is normal. GSV is normal. CFV is compressible, spontaneous, phasic, CFV is compressible, spontaneous, phasic, competent and demonstrates normal competent, and demonstrates normal augmentation. augmentation. FV is compressible, spontaneous, phasic, FV is compressible, spontaneous, phasic, competent and demonstrates normal competent and demonstrates normal augmentation. augmentation. POP V is compressible, spontaneous, phasic, POP V is compressible, spontaneous, phasic, competent and demonstrates normal competent and demonstrates normal augmentation. augmentation. T/P Trunk is compressible. T/P Trunk is compressible. PTV is compressible. PTV is compressible. RT PerV is compressible. LT PerV is compressible. Procedure This is a venous duplex using B-mode, color flow and spectral Doppler. Exam performed portable in patient room. The exam was diagnostic. Difficult study due to pt inability to position. A preliminary report was called and/or faxed to the pt's RN. VL/Venous Duplex US - Gabriel Extrem Interpretation Summary Deep veins of the bilateral lower extremities are patent and compressible segme ntally. There is no evidence of bilateral lower extremity deep vein thrombosis. The bilateral great saphenous veins appear patent and compressible segmentally. Ordering Physician: Dominique Hilliard Performed By: Ruben Duncan RVT
--- NOTE | 2023-01-16 15:52 | PCM.PN.HOSP ---
Reason for Visit Reason for Visit: Weakness/debility/lower extremity edema Subjective Subjective Mr. Duncan is a 62-year-old white male with a history of paraplegia from T7 down, chronic wounds and a chronic [place]o who presented to the emergency department with worsening generalized weakness, debility and, bilateral lower extremity edema. He was in the emergency department recently on 01/11/2023 for his lower extremity edema and venous duplexes were done and unremarkable for any signs of clots. They recommended snug Cedric wrap with elevation and a short course of Lasix for his lower extremity edema that was felt to be venous stasis related. He represented on 01/14/2023 due to ongoing swelling and increased weakness. His also stated on admission for the past several weeks prior to presentation he had been taking Restorationism tap ET and his sister who is a nurse thought that this could be contributing to all of his issues. Patient reported occasional hemorrhoidal bleeding but denied any significant black or tarry stools. Vital signs on admission were unremarkable. CBC did show an anemia with a hemoglobin of 8.2 and a platelet count of 6 471 with a left shift. Chemistry panel was overall unremarkable. A D-dimer was obtained and found to be elevated. We obtained a CTA of his chest this morning which was unremarkable for any acute findings. He did had a recent lower extremity Dopplers however I will repeat them as it has been 5 days since those were performed just to assure that there has not been any change with his complaints. An echocardiogram was obtained on 01/16/2023 and showed normal LV function with an EF of 55% however he has does have stage I diastolic dysfunction. He does not appear to be on any medications which would predispose him to lower extremity swelling. Today he does not appear uncomfortable but did note that he has significant hemorrhoids that intermittently bleed and has had several episodes of moderate bleeding from his head and arise over the last few weeks. His guaiac was positive. And he did require transfusion for 1 unit of packed red blood cells yesterday. Objective Data Objective Data Vital Signs: Vital Signs Temp Pulse Resp BP Pulse Ox O2 Del Method 98.5 F 105 H 16 112/56 L 93 Room Air 01/16/23 14:44 01/16/23 14:44 01/16/23 14:44 01/16/23 14:44 01/16/23 14:44 01/16/23 14:44 Oxygen Delivery Method Room Air Weight: 122 kg Body Mass Index (BMI) 36.4 Intake & Output: Intake and Output for Last 24 Hours 01/14/23 01/15/23 01/16/23 23:59 23:59 23:59 Intake Total 120 / 120 760 / 760 0 / 0 Output Total 200 / 200 4625 / 4625 1150 / 1150 Balance -80 / -80 -3865 / -3865 -1150 / -1150 Medical Nutrition Assessment Dietitian: Malnutrition Criteria Met Start: 01/15/23 14:54 Freq: Status: Active Protocol: Document 01/15/23 14:54 ANDREW (Rec: 01/15/23 14:55 ANDREW [id number]) Nutrition Malnutrition Evidence of Malnutrition Exists Yes Malnutrition (moderate): Acute Illness/Injury Evidenced By Suboptimal Energy Intake ( Moderate),Weight Loss ( Moderate) Clinical Problem Acute Disease or Injury Related Malnutrition Etiology related to physiological changes decreasing oral intakes Signs/Symptoms as evidenced by poor oral intakes of less than 75% of estimated nutrient needs x 1 week as well as significant weight loss of 1.5% in 4 days. Status Active Problem Recommendation Dietitian Recommendations/Changes Continue with Cardiac - Heart Healthy diet 2/2 swelling. Will start Ensure Plus High Protein 120mL 4x/day with medpass as well as David BID w / medpass to promote wound healing and help increase oral intakes. May recommend diet liberalization if oral intakes do not improve. Will continue to follow and modify interventions as needed . Lab / Micro Data 01/16/23 09:45 01/16/23 09:45 Labs: Laboratory Results - last 24 hr 01/15/23 05:15: Diff Path Review Reviewed, Vitamin B12 1602 H 01/15/23 21:46: Hgb 8.3 L, Hct 26.7 L 01/16/23 09:45: WBC 9.5, RBC 3.18 L, Hgb 8.6 L, Hct 28.3 L, MCV 89.0, MCH 27.0, MCHC 30.4 L, RDW Std Deviation 60.8 H, RDW Coeff of Rola 18.6 H, Plt Count 490 H, MPV 8.6, Neut % (Auto) Not Reportable, Absolute Neuts (auto) 8.1 H, Absolute Lymphs (auto) 0.95, Total Counted 100, Neutrophils % (Manual) 84 H, Band Neutrophils % 1, Lymphocytes % (Manual) 10 L, Monocytes % (Manual) 2, Myelocytes % 3 H, Diff Path Review May foll, Platelet Estimate ADEQUATE, RBC Morphology NORM C+C, Sodium 138, Potassium 3.3 L, Chloride 101, Carbon Dioxide 33.0 H, Anion Gap 4 L, BUN 29 H, Creatinine 0.71, Estim Creat Clear Calc 116.89, Est GFR (MDRD) Af Amer 143, Est GFR (MDRD) Non-Af 119, BUN/Creatinine Ratio 40.7 H, Glucose 98, Calcium 9.3 Radiography Diagnostic Testing: Radiology Impression Echocardiogram 01/14/23 23:32 Interpretation Summary Normal LV size. Left ventricular systolic function is normal. The estimated ejection fraction is 55 %. Stage 1 diastolic dysfunction. Contrast injection was performed. The study was technically difficult. Ordering Physician: Lauren Loco Performed By: Tra Zendejas RCS Chest CTA 01/16/23 08:41 IMPRESSION: No evidence of pulmonary embolism. Findings suggest some mild scarring at the lung bases. Electronically Signed: Joseph Flores MD at 9:55 EDT , Physical Exam Const alert, oriented x3, no apparent distress and well nourished Constitutional Narrative: Obese, upper middle-aged, white male, sitting up in bed, appears comfortable, nontoxic, watching television HEENT head/scalp atraumatic, moist oral mucous membranes, oropharynx normal and dentition normal HEENT Narrative: Mallampati 3, no thrush Eyes PERRL and EOMs intact bilaterally Eyes Narrative: Conjunctiva are mildly pale bilaterally Neck no lymphadenopathy, supple and no JVD Neck Narrative: Trachea midline, no thyroid enlargement Resp normal respiratory effort, no retractions, no use of accessory muscles and clear to auscultation bilaterally Auscultation: Negative for rales, rhonchi or wheezes Cardio regular rate, regular rhythm, S1 normal heart sound, S2 normal heart sound, no murmurs, no rub, no gallops and no clicks GI normal to inspection, nondistended, normoactive bowel sounds, soft to palpation and non-tender Extremity Extremity Narrative: 1+ bilateral lower extremity pitting edema with no clubbing or cyanosis Skin no wounds, skin turgor normal, no jaundice, no petechiae and no mottling Skin Narrative: Multiple chronic wounds as noted from pictures taken by wound care all of which appear to be clean dry and no signs of infection, skin is pale Neuro oriented x3 Neuro Narrative: Unable to move lower extremities bilaterally, sensory deficit from T7 distally, upper extremity movement is normal with no signs of significant weakness Speech: speech normal Psych affect normal Psych Narrative: Very pleasant, interacts appropriately Assessment & Plan Assessment/Plan (1) CHF (congestive heart failure): (2) Myopathy: (3) Generalized weakness: (4) Lower extremity edema: (5) Anemia: (6) GI bleed: (7) Thrombocytosis: PLAN: Plan Acute on chronic normocytic anemia -With significant hemorrhoids however guaiac is positive as well -Red blood cells yesterday -Hemoglobin up appropriately -Consult GI as patient may need to be on anticoagulation and if not possible intervention on hemorrhoids may be able to be pursued by GI -Repeat CBC in a.m. -Studies were performed and are more consistent with anemia of chronic disease however will start supplemental iron as well Bilateral lower extremity swelling -Duplex done 5 days ago--> we will repeat with elevated D-dimer and negative CTA of the chest -CT of the chest is negative -Continue Lasix as ordered -Suspect this is multifactorial from decreased nutritional status, decreased mobility -Echocardiogram only shows diastolic dysfunction and no further cardiac work-up needs to be pursued at this time -Patient has been using Restorationism tapee tea wondering whether or not this is contributed to his problems--> and evidently has had steroids in it which could cause a myopathy induced by steroids contributing to his weakness -We had extensive discussion about discontinued use patient voiced understanding Heart failure with preserved ejection fraction -Continue diuretics as ordered -Cardiology has signed off -We will asked the patient follow-up with cardiology as an outpatient after discharge -With his left bundle branch block cardiology has recommended outpatient stress test be performed as he is currently fairly asymptomatic other than the swelling -Continue antihypertensives as ordered Generalized weakness/debility -PT/OT consultation -Patient will likely need placement at discharge--> Case management/social work following -Check CPK Thrombocytosis -May be related to acute phase reactant plus minus iron deficiency -Iron started -GI consult in place -Continue to monitor--> appears to be fluctuating Hypertension -Continue home amlodipine -Continue home chlorthalidone at discharge-hold for now while on IV diuretics -Hold home Lasix as cannot patient is currently receiving IV Lasix T7 paraplegia-complete -Continue home tizanidine -Continue Imdur-continue home baclofen -Continue home diazepam GERD -Continue home famotidine Chronic wounds -Wound care is following -No current signs of infection DVT prophylaxis -SCDs -Hold chemoprophylaxis while concerned about GI bleeding CODE STATUS Been DNR CCA with no intubation per documentation and conversation on admission Charges/Coding Visit Charges Inpatient E&M: 84450 Subs Hosp L2
[2023-01-16 17:03] LABS: CPK Total, Creatine Kinase 62 U/L (39-308)
[2023-01-16] MEDS: 0.9% Saline Lock 10 ML Syringe IV (23:05)
[2023-01-16] MEDS: Acetaminophen 325 MG Tablet 650 MG PO (23:05)
[2023-01-17] VITALS (9 sets, daily range): BP systolic 95–145; BP diastolic 52–71; PULSE 79–115; RESP 16–20; TEMP 36.9–38.3; O2SAT 91–98; BMI 36.3
[2023-01-17 06:44] LABS: Hematocrit 28.1 % (40-54); Hemoglobin 8.3 g/dL (13.0-16.5); Mean Corp Hgb Conc 29.5 g/dL (32-36); Mean Corpuscular Hgb 26.6 pg (27.0-32.0); Mean Corpuscular Volume 90.1 fL (80-94); Mean Platelet Vol. 8.9 fl (6.2-12.0); POSITIVE COUNT YES; POSITIVE MORPHOLOGY YES; Platelet Count 508 K/mm3 (150-450); RBC Distribution Width CV 18.7 % (11.6-14.6); RBC Distribution Width SD 61.6 fl (35.1-43.9); Red Blood Count 3.12 M/mm3 (4.6-6.2); White Blood Count 12.4 K/mm3 (4.4-11.0)
[2023-01-17 06:50] LABS: Differential Indicated MANUAL DIFF
[2023-01-17 07:19] LABS: ALB/GLOB Ratio 0.4 RATIO (0.9-2.4); AST(SGOT) 69 U/L (15-37); Alanine Aminotransfer ALT/SGPT 57 U/L (16-61); Albumin, Serum 1.9 g/dL (3.2-5.0); Alkaline Phosphatase 89 U/L (45-117); Anion Gap 8 (5-15); BUN 43 mg/dL (7-18); BUN/Creat Ratio 48.6 RATIO (10-20); Calcium,Total 9.5 mg/dL (8.5-10.1); Chloride 99 mmol/L (98-107); Creatinine, Serum 0.88 mg/dL (0.70-1.30); EST Glomerular Filtration Rate 92 mL/min (>60); Est Glom Filt Rate - Afr Amer 112 mL/min (>60); Estimated Creatinine Clearance 94.31 ml/min; Glucose 108 mg/dL (74-106); Magnesium 2.1 mg/dL (1.6-2.6); Phosphorus 3.2 mg/dL (2.5-4.9); Potassium 3.4 mmol/L (3.5-5.1); Protein, Total 6.9 g/dL (6.4-8.2); Sodium Level 138 mmol/L (136-145); Thyroid Stim Hormone (TSH) 2.07 uIU/mL (0.358-3.74)
[2023-01-17 07:29] LABS: Basophil 1 % (0-1); Eosinophil 3 % (0-5); Lymphocyte 12 % (19-41); Metamyelocyte 2 % (0-1); Monocyte 5 % (0-10); Myelocyte 2 % (0-0); Neutrophil-Band 7 % (0-5); Neutrophil-Segmented 68 % (47-70); Total Cells Counted 100 (MANUAL DIFF)
[2023-01-17 07:30] LABS: Absolute Lymphocyte Count 1.49 X10^3/uL (0.83-4.51); Absolute Neutrophil Count 9.3 X10^3/uL (2.0-7.7); Anisocytosis RARE; Hypochromasia 1+; Lymphocyte # 1.49 X10^3/ul (0.83-4.51); Neutrophil # 9.31 X10^3/uL (2.7-7.7); Platelet Estimate ADEQUATE (ADEQ); Polychromasia RARE
--- NOTE | 2023-01-17 08:16 | PN.CARD_ITS ---
Subjective Subjective Patient seen and evaluated. Status quo ante Objective Data Vital Signs: Vital Signs Temp Pulse Resp BP Pulse Ox O2 Del Method 98.4 F 84 17 130/67 H 98 Room Air 01/17/23 03:20 01/17/23 03:20 01/17/23 03:20 01/17/23 03:20 01/17/23 03:20 01/17/23 03:36 Oxygen Delivery Method Room Air Weight: 267 lb 13.786 oz Body Mass Index (BMI) 36.3 Intake & Output: Intake and Output for Last 24 Hours 01/15/23 01/16/23 01/17/23 23:59 23:59 23:59 Intake Total 760 / 760 500 / 500 Output Total 4625 / 4625 1800 / 1800 600 / 600 Balance -3865 / -3865 -1300 / -1300 -600 / -600 Lab / Micro Data 01/17/23 05:10 01/17/23 05:10 Labs: Laboratory Results - last 24 hr 01/15/23 05:15: Diff Path Review Reviewed, Vitamin B12 1602 H 01/16/23 09:45: WBC 9.5, RBC 3.18 L, Hgb 8.6 L, Hct 28.3 L, MCV 89.0, MCH 27.0, MCHC 30.4 L, RDW Std Deviation 60.8 H, RDW Coeff of Rola 18.6 H, Plt Count 490 H, MPV 8.6, Neut % (Auto) Not Reportable, Absolute Neuts (auto) 8.1 H, Absolute Lymphs (auto) 0.95, Total Counted 100, Neutrophils % (Manual) 84 H, Band Neutrophils % 1, Lymphocytes % (Manual) 10 L, Monocytes % (Manual) 2, Myelocytes % 3 H, Diff Path Review May foll, Platelet Estimate ADEQUATE, RBC Morphology NORM C+C, Sodium 138, Potassium 3.3 L, Chloride 101, Carbon Dioxide 33.0 H, Anion Gap 4 L, BUN 29 H, Creatinine 0.71, Estim Creat Clear Calc 116.89, Est GFR (MDRD) Af Amer 143, Est GFR (MDRD) Non-Af 119, BUN/Creatinine Ratio 40.7 H, Glucose 98, Calcium 9.3, Total Creatine Kinase 62 01/17/23 05:10: WBC 12.4 H, RBC 3.12 L, Hgb 8.3 L, Hct 28.1 L, MCV 90.1, MCH 26.6 L, MCHC 29.5 L, RDW Std Deviation 61.6 H, RDW Coeff of Rola 18.7 H, Plt Count 508 H, MPV 8.9, Neut % (Auto) Not Reportable, Absolute Neuts (auto) 9.3 H, Absolute Lymphs (auto) 1.49, Total Counted 100, Neutrophils % (Manual) 68, Band Neutrophils % 7 H, Lymphocytes % (Manual) 12 L, Monocytes % (Manual) 5, Eosinophils % (Manual) 3, Basophils % (Manual) 1, Metamyelocytes % 2 H, Mye locytes % 2 H, Diff Path Review September, Platelet Estimate ADEQUATE, Polychromasia RARE, Hypochromasia 1+, Anisocytosis RARE, Sodium 138, Potassium 3.4 L, Chloride 99, Carbon Dioxide 31.0, Anion Gap 8, BUN 43 H, Creatinine 0.88, Estim Creat Clear Calc 94.31, Est GFR (MDRD) Af Amer 112, Est GFR (MDRD) Non-Af 92, BUN/Creatinine Ratio 48.6 H, Glucose 108 H, Calcium 9.5, Phosphorus 3.2, Magnesium 2.1, Total Bilirubin 0.40, AST 69 H, ALT 57, Alkaline Phosphatase 89, Total Protein 6.9, Albumin 1.9 L, Globulin 5.0 H, Albumin/Globulin Ratio 0.4 L, TSH 2.07 Cardiology Labs/Tests 01/16/23 09:45: WBC 9.5, RBC 3.18 L, Hgb 8.6 L, Hct 28.3 L, MCV 89.0, MCH 27.0, MCHC 30.4 L, Plt Count 490 H, MPV 8.6, Neut % (Auto) Not Reportable, Absolute Neuts (auto) 8.1 H, Total Counted 100, Neutrophils % (Manual) 84 H, Band Neutrophils % 1, Lymphocytes % (Manual) 10 L, Monocytes % (Manual) 2, Myelocytes % 3 H, Sodium 138, Potassium 3.3 L, Chloride 101, Carbon Dioxide 33.0 H, Anion Gap 4 L, BUN 29 H, Creatinine 0.71, Est GFR (MDRD) Af Amer 143, Est GFR (MDRD) Non-Af 119, BUN/Creatinine Ratio 40.7 H, Glucose 98, Calcium 9.3 01/17/23 05:10: WBC 12.4 H, RBC 3.12 L, Hgb 8.3 L, Hct 28.1 L, MCV 90.1, MCH 26.6 L, MCHC 29.5 L, Plt Count 508 H, MPV 8.9, Neut % (Auto) Not Reportable, Absolute Neuts (auto) 9.3 H, Total Counted 100, Neutrophils % (Manual) 68, Band Neutrophils % 7 H, Lymphocytes % (Manual) 12 L, Monocytes % (Manual) 5, Eosinophils % (Manual) 3, Basophils % (Manual) 1, Metamyelocytes % 2 H, Myelocytes % 2 H, Sodium 138, Potassium 3.4 L, Chloride 99, Carbon Dioxide 31.0, Anion Gap 8, BUN 43 H, Creatinine 0.88, Est GFR (MDRD) Af Amer 112, Est GFR (MDRD) Non-Af 92, BUN/Creatinine Ratio 48.6 H, Glucose 108 H, Calcium 9.5, Phosphorus 3.2, Magnesium 2.1, Total Bilirubin 0.40 Rhythm: EKG: ECHO: Stress Test: Cardiac Cath: PCI: CT Surgery: Holter monitor: EPS: PPM: CXR: Chest CT Scan: Radiography Diagnostic Testing: Radiology Impression Echocardiogram 01/14/23 23:32 Interpretation Summary Normal LV size. Left ventricular systolic function is normal. The estimated ejection fraction is 55 %. Stage 1 diastolic dysfunction. Contrast injection was performed. The study was technically difficult. Ordering Physician: Lauren Loco Performed By: Tra Zendejas RCS Chest CTA 01/16/23 08:41 IMPRESSION: No evidence of pulmonary embolism. Findings suggest some mild scarring at the lung bases. Electronically Signed: Joseph Flores MD at 9:55 EDT , Physical Exam Const alert, oriented x3, no apparent distress and well nourished Constitutional Narrative: Obese, upper middle-aged, white male, sitting up in bed, appears comfortable, nontoxic, watching television HEENT head/scalp atraumatic, moist oral mucous membranes, oropharynx normal and dentition normal HEENT Narrative: Mallampati 3, no thrush Eyes PERRL and EOMs intact bilaterally Eyes Narrative: Conjunctiva are mildly pale bilaterally Neck no lymphadenopathy, supple and no JVD Neck Narrative: Trachea midline, no thyroid enlargement Resp normal respiratory effort, no retractions, no use of accessory muscles and clear to auscultation bilaterally Auscultation: Negative for rales, rhonchi or wheezes Cardio regular rate, regular rhythm, S1 normal heart sound, S2 normal heart sound, no murmurs, no rub, no gallops and no clicks GI normal to inspection, nondistended, normoactive bowel sounds, soft to palpation and non-tender Extremity Extremity Narrative: 1+ bilateral lower extremity pitting edema with no clubbing or cyanosis Skin no wounds, skin turgor normal, no jaundice, no petechiae and no mottling Skin Narrative: Multiple chronic wounds as noted from pictures taken by wound care all of which appear to be clean dry and no signs of infection, skin is pale Neuro oriented x3 Neuro Narrative: Unable to move lower extremities bilaterally, sensory deficit from T7 distally, upper extremity movement is normal with no signs of significant weakness Speech: speech normal Psych affect normal Psych Narrative: Very pleasant, interacts appropriately Assessment & Plan Assessment/Plan (1) Hypertension: PLAN: His blood pressure appears to be under good control at this time I would not suggest that we make any changes. He will continue the current medications. (2) CHF (congestive heart failure): PLAN: He had been admitted with a diagnosis of congestive heart failure. His natruretic peptide level was minimally elevated. It is back to normal. His echocardiogram did demonstrate preserved left ventricular systolic function. I would not recommend any other treatment at this time. We will sign off. * * Thank you for allowing me to participate in the care of your patient. Please don't hesitate to call if any issues arise.
[2023-01-17] MEDS: Acetaminophen 325 MG Tablet 650 MG PO (10:05)
[2023-01-17] MEDS: Furosemide 40 MG/4 ML Vial IV (10:06)
[2023-01-17] MEDS: Famotidine 20 MG Tablet PO (10:06)
[2023-01-17] MEDS: tiZANidine HCl 2 MG Tablet PO ×2 (10:06→22:17)
[2023-01-17] MEDS: traMADol 50 MG Tablet PO ×2 (10:06→22:11)
[2023-01-17] MEDS: Gabapentin 100 MG Capsule 200 MG PO ×2 (10:06→22:11)
[2023-01-17] MEDS: Baclofen 10 MG Tablet 5 MG PO ×2 (10:07→22:15)
[2023-01-17] MEDS: Metoprolol Tartrate 25 MG Tablet PO ×2 (10:07→22:14)
[2023-01-17] MEDS: Ensure Plus High Protein 120 ML LIQUID PO ×3 (10:07→17:26)
[2023-01-17] MEDS: Juven (unflavored) Packet 1 PACKET PO ×2 (10:07→17:25)
[2023-01-17] MEDS: Iron Polysaccharide Complex 150 MG CAPSULE PO (10:07)
[2023-01-17] MEDS: Potassium Chloride Oral Tablet 20 MEQ 40 MEQ PO (10:11)
[2023-01-17] MEDS: Menthol/Lanolin/Calamine/Znox 113 GM Tube 1 APPLIC TOPICAL ×2 (10:13→22:16)
[2023-01-17] MEDS: 0.9% Saline Lock 10 ML Syringe IV (10:13)
[2023-01-17] MEDS: Miconazole Nitrate 43 GM Bottle 1 APPLIC TOPICAL ×2 (10:13→22:16)
[2023-01-17 12:06] LABS: Procalcitonin 0.28 ng/mL (0.00-0.09)
[2023-01-17 12:07] LABS: Probe Check PASS
[2023-01-17 12:09] LABS: M R Staph aureus DNA By PCR POSITIVE (Negative)
[2023-01-17 12:51] LABS: Erythrocyte Sedimentation Rate 48 mm/hr (0-20)
--- NOTE | 2023-01-17 13:38 | CASEMGMT ---
BERKLEY noted that patient was interested in [facility]. SW made a referral this am and TCU can take patient. BERKLEY notified patient and his that TCU can take patient when he is ready. Plan: [facility] pending patient being medically ready. Celia LOBATO
--- NOTE | 2023-01-17 15:55 | PN.HOSP_ITS ---
Reason for Visit Reason for Visit: Weakness/debility/lower extremity edema Subjective Subjective States he feels like he is moving a little bit better with therapy now that the swelling in his legs is better. I discussed with him that I am still concerned about some occult infection. His MRSA PCR was positive and patient is not clear whether or not he has a history of MRSA infection. I did discuss with him the need to get thoracic, lumbar, and pelvic MRI. He does have a baclofen pump which we will need to address prior to MRI being performed. He also complained of constipation and requires manual stimulation to have bowel movements. I did discuss with nursing and they will take care of this later. Objective Data Objective Data Vital Signs: Vital Signs Temp Pulse Resp BP Pulse Ox O2 Del Method 98.6 F 84 16 95/52 L 98 Room Air 01/17/23 15:20 01/17/23 15:20 01/17/23 15:20 01/17/23 15:20 01/17/23 15:20 01/17/23 15:20 Oxygen Delivery Method Room Air Weight: 121.5 kg Body Mass Index (BMI) 36.3 Intake & Output: Intake and Output for Last 24 Hours 01/15/23 01/16/23 01/17/23 23:59 23:59 23:59 Intake Total 760 / 760 500 / 500 300 / 300 Output Total 4625 / 4625 1800 / 1800 1450 / 1450 Balance -3865 / -3865 -1300 / -1300 -1150 / -1150 Medical Nutrition Assessment Dietitian: Malnutrition Criteria Met Start: 01/15/23 14:54 Freq: Status: Active Protocol: Document 01/15/23 14:54 THALIA (Rec: 01/15/23 14:55 [facility] [id number]) Nutrition Malnutrition Evidence of Malnutrition Exists Yes Malnutrition (moderate): Acute Illness/Injury Evidenced By Suboptimal Energy Intake ( Moderate),Weight Loss ( Moderate) Clinical Problem Acute Disease or Injury Related Malnutrition Etiology related to physiological changes decreasing oral intakes Signs/Symptoms as evidenced by poor oral intakes of less than 75% of estimated nutrient needs x 1 week as well as significant weight loss of 1.5% in 4 days. Status Active Problem Recommendation Dietitian Recommendations/Changes Continue with Cardiac - Heart Healthy diet 2/2 swelling. Will start Ensure Plus High Protein 120mL 4x/day with medpass as well as David BID w / medpass to promote wound healing and help increase oral intakes. May recommend diet liberalization if oral intakes do not improve. Will continue to follow and modify interventions as needed . Lab / Micro Data 01/17/23 05:10 01/17/23 05:10 Labs: Laboratory Results - last 24 hr 01/16/23 09:45: Total Creatine Kinase 62 01/17/23 05:10: WBC 12.4 H, RBC 3.12 L, Hgb 8.3 L, Hct 28.1 L, MCV 90.1, MCH 26.6 L, MCHC 29.5 L, RDW Std Deviation 61.6 H, RDW Coeff of Rola 18.7 H, Plt Count 508 H, MPV 8.9, Neut % (Auto) Not Reportable, Absolute Neuts (auto) 9.3 H, Absolute Lymphs (auto) 1.49, Total Counted 100, Neutrophils % (Manual) 68, Band Neutrophils % 7 H, Lymphocytes % (Manual) 12 L, Monocytes % (Manual) 5, Eosinophils % (Manual) 3, Basophils % (Manual) 1, Metamyelocytes % 2 H, Myelocytes % 2 H, Diff Path Review May foll, Platelet Estimate ADEQUATE, Polychromasia RARE, Hypochromasia 1+, Anisocytosis RARE, Sodium 138, Potassium 3.4 L, Chloride 99, Carbon Dioxide 31.0, Anion Gap 8, BUN 43 H, Creatinine 0.88, Estim Creat Clear Calc 94.31, Est GFR (MDRD) Af Amer 112, Est GFR (MDRD) Non-Af 92, BUN/Creatinine Ratio 48.6 H, Glucose 108 H, Calcium 9.5, Phosphorus 3.2, Magnesium 2.1, Total Bilirubin 0.40, AST 69 H, ALT 57, Alkaline Phosphatase 89, C-React Prot Ext Range 300.00 H, Total Protein 6.9, Albumin 1.9 L, Globulin 5.0 H, Albumin/Globulin Ratio 0.4 L, TSH 2.07 01/17/23 08:48: ESR 48 H, Procalcitonin 0.28 H 01/17/23 10:30: MRSA (PCR) POSITIVE H Physical Exam Const alert, oriented x3, no apparent distress and well nourished Constitutional Narrative: Obese, upper middle-aged, white male, sitting up in bed, appears comfortable, nontoxic, watching television General Appearance: cooperative and comfortable HEENT normocephalic, head/scalp atraumatic, hearing grossly normal bilaterally, moist oral mucous membranes and oropharynx normal Eyes PERRL, EOMs intact bilaterally and conjunctivae normal Eyes Narrative: Conjunctiva are mildly pale bilaterally Neck full ROM, no lymphadenopathy and supple Neck Narrative: Trachea midline, no thyroid enlargement Resp normal respiratory effort, normal air movement, no retractions, no use of accessory muscles and clear to auscultation bilaterally Auscultation: Negative for rales, rhonchi or wheezes Cardio regular rate, regular rhythm, S1 normal heart sound, S2 normal heart sound, no murmurs, no rub, no gallops, no clicks and peripheral pulses 2+ throughout GI normal to inspection, nondistended, normoactive bowel sounds, soft to palpation and non-tender Extremity Extremity Narrative: Trace to 1+ bilateral lower extremity pitting edema with no clubbing or cyanosis Neuro oriented x3 Neuro Narrative: Unable to move lower extremities bilaterally, sensory deficit from T7 distally, upper extremity movement is normal with no signs of significant weakness Speech: speech normal Psych mental status grossly normal and affect normal Psych Narrative: Very pleasant, interacts appropriately Assessment & Plan Assessment/Plan (1) CHF (congestive heart failure): (2) Myopathy: (3) Generalized weakness: (4) Lower extremity edema: (5) Anemia: (6) GI bleed: (7) Thrombocytosis: PLAN: Plan Acute on chronic normocytic anemia -With significant hemorrhoids however guaiac is positive as well -PRBC x 1 unit given on 01/16/2023 -Hemoglobin up appropriately and relatively stable today -Consult GI as patient may need to be on anticoagulation and if not possible intervention on hemorrhoids may be able to be pursued by GI -awaiting GI to see pt--> d/w Dr. Merida this am -Repeat CBC in a.m. -Studies were performed and are more consistent with anemia of chronic disease -cont Fe supplementation Bilateral lower extremity swelling -Duplex done 5 days ago--> we will repeat with elevated D-dimer and negative CTA of the chest -CT of the chest is negative -Continue Lasix as ordered -Suspect this is multifactorial from decreased nutritional status, decreased mobility -Echocardiogram only shows diastolic dysfunction and no further cardiac work-up needs to be pursued at this time -Patient has been using Marbin tapee tea wondering whether or not this is c ontributed to his problems--> and evidently has had steroids in it which could cause a myopathy induced by steroids contributing to his weakness -We had extensive discussion about discontinued use patient voiced understanding Heart failure with preserved ejection fraction -Blood pressure is starting to drop will hold diuretics for now -Will trend blood pressure and reinitiate when able to oral -Cardiology has signed off -We will asked the patient follow-up with cardiology as an outpatient after discharge -With his left bundle branch block cardiology has recommended outpatient stress test be performed as he is currently fairly asymptomatic other than the swelling -Hold parameters placed on metoprolol Generalized weakness/debility -PT/OT following -Patient will likely need placement at discharge--> Case management/social work following -CPK is within normal limits -Highly suspect there is an infectious process going on so we did check ESR and CRP which are markedly elevated -Elevated D-dimer/thrombocytosis/elevated CRP/elevated ESR/elevated PCT -MRSA PCR is positive and patient without any recollection of previous MRSA infection -UA is unremarkable/no signs of pneumonia -Blood cultures are pending -Check MRI thoracic, lumbar, pelvic region with contrast to assess for infection -Procalcitonin is elevated at 0.28 -Start vancomycin and Zosyn for now -Infectious work-up in progress -CBC with differential in a.m.--> current differential with bandemia and white count trending up -May need to consider infectious disease involvement depending on results Thrombocytosis -May be related to acute phase reactant plus minus iron deficiency -Iron started -GI consult in place -Continue to monitor--> appears to be fluctuating Hypertension -Amlodipine has been discontinued -Continue home chlorthalidone -Hold home beta-pranav -We will hold Lasix for now as blood pressure most recently was 95/58 T7 paraplegia-complete -Continue home tizanidine -continue home baclofen -Continue home diazepam -Baclofen pump in place and will need to get clearance prior to MRI GERD -Continue home famotidine Chronic wounds -Wound care is following -No current signs of infection locally at wound DVT prophylaxis -SCDs -Hold chemoprophylaxis while concerned about GI bleeding CODE STATUS Been DNR CCA with no intubation per documentation and conversation on admission Charges/Coding Visit Charges Inpatient E&M: [address] [facility] Hosp L3
[2023-01-17] MEDS: Vancomycin HCl 1,750 MG in 0.9% Normal Saline (500mL Bag) 500 ML 250 MG IV (17:04)
--- NOTE | 2023-01-17 17:22 | PHA.PHARE_ITS ---
Consult Antibiotic Management Pharmacy has been consulted to manage selected antiobiotic: Vancomycin Type of Intervention Type of Consult: New start Labs Labs: Sodium 138 mmol/L (136-145) 01/17/23 05:10 Potassium 3.4 mmol/L (3.5-5.1) L 01/17/23 05:10 Chloride 99 mmol/L (98-107) 01/17/23 05:10 Carbon Dioxide 31.0 mmol/L (21.0-32.0) 01/17/23 05:10 Anion Gap 8 (5-15) 01/17/23 05:10 BUN 43 mg/dL (7-18) H 01/17/23 05:10 Creatinine 0.88 mg/dL (0.70-1.30) 01/17/23 05:10 Est GFR (MDRD) Af Amer 112 mL/min (>60) 01/17/23 05:10 Est GFR (MDRD) Non-Af 92 mL/min (>60) 01/17/23 05:10 BUN/Creatinine Ratio 48.6 RATIO (10-20) H 01/17/23 05:10 Glucose 108 mg/dL (74-106) H 01/17/23 05:10 Microbiology Microbiology: Microbiology 01/17/23 15:51 Stool Stool Occult Blood (JUAN M) - Final Occult Blood Positive Dosing Weight Weight used for dosin.5 kg Estimated Creatinine Clearance Estimated Creatinine Clearance: 94ML/MIN Goal Trough Goal Trough: 15-20 mcg/mL Pharmacy Plan for Drug Dosing Pharmacy Plan for Drug Dosing: Give initial standard dose of 1750mg IV x1, then continue with 2000mg IV q12h. Did not want to start with q8h dosing (at a dose of 1250mg) as the [facility] dosing chart suggested since the patient is 62 years old so went one step down and will start with 2000mg IV q12h. Will order a trough before the 4th total dose. Pharmacy Service will continue to monitor and adjust dosing as required. Follow-Up Labs Follow-Up Labs: Trough: Vancomycin Date/Time Labs Ordered Labs to be done on [date and time ordered]: 01/19/23 04:30
--- NOTE | 2023-01-17 18:24 | RAD_ITS ---
STUDY: X-RAY - ABDOMEN/PELVIS REASON FOR EXAM: Male, 62 years old. VERIFY PUMP LOCATION- PRE MRI TECHNIQUE: 3 AP supine views of the abdomen and pelvis. COMPARISON: None. FINDINGS: Normal visualized lung bases. There is an unremarkable bowel gas pattern. There is no demonstrated free abdominal air. There is metallic and electronic pump device overlying the left lower quadrant. There are multiple adjacent linear catheters and adjacent calcifications extending laterally, superior medially, and inferiorly . There is degenerative change of the spine. RAD/Abdomen Single View IMPRESSION: Pump device in the left lower quadrant. Correlation with specific device type and activity recommended prior to MRI scanning. The patient is not cleared for MRI. Electronically Signed: Matthew Jackson MD at 18:59 EDT ,
--- NOTE | 2023-01-17 18:54 | CON.PCM.GI_ITS ---
HPI Consult Data Date of Consult: 01/17/23 HPI Narrative Reason for Consultation: Anemia and lower GI bleed HPI Narrative: ERUM PIPER, is a 62 M who presents with bilateral lower extremity edema. He was seen recently ruled out for DVT and CHF given Lasix and sent home incidentally he did have hypoalbuminemia. He has a past medical history of trauma with paraplegia with no sensation from the chest down status post multiple surgeries at [facility] in [facility] to the lower extremities with a chronic Aguayo catheter as well as chronic wounds to the right side of the abdomen. I was asked to see him due to recurrent bleeding and worsening anemia. Initially he was determined to have a hemoglobin to 8.2 with a reactive thrombocytosis. His hemoglobin dropped down to 6.8 and he was given blood and now his hemoglobin is back up to 8.5. He admits to history of hemorrhoidal disease to the point where he gets GI bleeding and he feels like he is going to pass out. He has not had a colonoscopy in 30 years. He has never had upper endoscopy. [facility] Medical History (Updated 01/17/23 @ 19:[address] Burton Friend, DO) Accident at workplace CHF (congestive heart failure) Chronic anemia GERD (gastroesophageal reflux disease) Hypertension Obesity Paraplegia, unspecified Home Medications amlodipine 10 mg tablet 10 mg PO DAILY 01/11/23 [History Last Taken Unknown] baclofen 10 mg tablet 5 mg PO BID 01/11/23 [History Last Taken Unknown] chlorthalidone 25 mg tablet 25 mg PO DAILY 01/11/23 [History Last Taken Unknown] diazepam 5 mg tablet 5 mg PO QHS PRN sleep 01/11/23 [History Last Taken Unknown] famotidine 40 mg tablet 20 mg PO DAILY 01/11/23 [History Last Taken Unknown] furosemide 40 mg tablet (Lasix) 40 mg PO DAILY #4 tabs 01/11/23 [Rx Last Taken Unknown] gabapentin 100 mg capsule 200 mg PO BID 01/11/23 [History Last Taken Unknown] silver sulfadiazine 1 % topical cream 1 applic topical DAILY 01/11/23 [History Last Taken Unknown] tizanidine 2 mg tablet 2 mg PO BID 01/11/23 [History Last Taken Unknown] tramadol 50 mg tablet 50 mg PO BID 01/11/23 [History Last Taken Unknown] Allergy/AdvReac Type Severity Reaction Status Date / Time No Known Allergies Allergy Verified 01/14/23 20:30 Family History (Updated 01/14/23 @ 23:[address] Lauren Loco MD) Father CAD (coronary artery disease) Heart disease Hypertension Mother No problems noted. Surgical History (Updated 01/14/23 @ 23:[address] Lauren Loco MD) History of back surgery History of skin surgery History of surgery on lower extremity S/P appendectomy Social History (Updated 01/14/23 @ 23:[address] Lauren Loco MD) household members: spouse Smoking Status: Never smoker alcohol intake: never substance use type: does not use ROS ROS Narrative Admission Review of Systems: CONSTITUTIONAL: No weight loss, fever, chills, + weakness or fatigue. HEENT: Eyes: No visual loss, blurred vision, double vision or yellow sclerae. Ears, Nose, Throat: No hearing loss, sneezing, congestion, runny nose or sore throat. SKIN: + Bilateral lower extremity stasis skin changes, stasis ulcers, abdominal fold chronic wounds. CARDIOVASCULAR: + Worsening peripheral edema. No chest pain, chest pressure or chest discomfort, palpitations, orthopnea, syncopal events. RESPIRATORY: No shortness of breath, cough or sputum, wheezing, hemoptysis. GASTROINTESTINAL: No anorexia, nausea, vomiting or diarrhea, abdominal pain, melena, BRBPR. GENITOURINARY: No dysuria, frequency, urgency or retention. NEUROLOGICAL: + Status post logging accident with chronic paraplegia, lack of sensation chest downward, no headache, dizziness, syncope, change in bowel or bladder control, seizure. MUSCULOSKELETAL: + muscle, back pain, joint pain or stiffness. HEMATOLOGIC: + anemia, notes some episodes of hemorrhoidal bleeding but none currently. LYMPHATICS: No enlarged nodes. No history of splenectomy. PSYCHIATRIC: No history of depression or anxiety. ENDOCRINOLOGIC: No reports of sweating, cold or heat intolerance. No polyuria or polydipsia. ALLERGIES: No history of asthma, hives, eczema or rhinitis. Physical Exam Const alert, oriented x3, no apparent distress and well nourished General Appearance: cooperative and comfortable HEENT normocephalic, head/scalp atraumatic, hearing grossly normal bilaterally, moist oral mucous membranes and oropharynx normal Eyes PERRL, EOMs intact bilaterally and conjunctivae normal Eyes Narrative: Conjunctiva are mildly pale bilaterally Neck full ROM, no lymphadenopathy and supple Neck Narrative: Trachea midline, no thyroid enlargement Resp normal respiratory effort, normal air movement, no retractions, no use of accessory muscles and clear to auscultation bilaterally Auscultation: Negative for rales, rhonchi or wheezes Cardio regular rate, regular rhythm, S1 normal heart sound, S2 normal heart sound, no murmurs, no rub, no gallops, no clicks and peripheral pulses 2+ throughout GI normal to inspection, nondistended, normoactive bowel sounds, soft to palpation and non-tender Extremity Extremity Narrative: Trace to 1+ bilateral lower extremity pitting edema with no clubbing or cyanosis Neuro oriented x3 Neuro Narrative: Unable to move lower extremities bilaterally, sensory deficit from T7 distally, upper extremity movement is normal with no signs of significant weakness Speech: speech normal Psych mental status grossly normal and affect normal Psych Narrative: Very pleasant, interacts appropriately Medical Records Data Medical Nutrition Assessment Dietitian: Malnutrition Criteria Met Start: 01/15/23 14:54 Freq: Status: Active Protocol: Document 01/15/23 14:54 [facility] (Rec: 01/15/23 14:55 [facility] [id number]) Nutrition Malnutrition Evidence of Malnutrition Exists Yes Malnutrition (moderate): Acute Illness/Injury Evidenced By Suboptimal Energy Intake ( Moderate),Weight Loss ( Moderate) Clinical Problem Acute Disease or Injury Related Malnutrition Etiology related to physiological changes decreasing oral intakes Signs/Symptoms as evidenced by poor oral intakes of less than 75% of estimated nutrient needs x 1 week as well as significant weight loss of 1.5% in 4 days. Status Active Problem Recommendation Dietitian Recommendations/Changes Continue with Cardiac - Heart Healthy diet 2/2 swelling. Will start Ensure Plus High Protein 120mL 4x/day with medpass as well as David BID w / medpass to promote wound healing and help increase oral intakes. May recommend diet liberalization if oral intakes do not improve. Will continue to follow and modify interventions as needed . Lab / Micro Data 01/17/23 05:10 01/17/23 05:10 Labs: Laboratory Results - last 24 hr 01/17/23 05:10: WBC 12.4 H, RBC 3.12 L, Hgb 8.3 L, Hct 28.1 L, MCV 90.1, MCH 26.6 L, MCHC 29.5 L, RDW Std Deviation 61.6 H, RDW Coeff of Rola 18.7 H, Plt Count 508 H, MPV 8.9, Neut % (Auto) Not Reportable, Absolute Neuts (auto) 9.3 H, Absolute Lymphs (auto) 1.49, Total Counted 100, Neutrophils % (Manual) 68, Band Neutrophils % 7 H, Lymphocytes % (Manual) 12 L, Monocytes % (Manual) 5, Eosinophils % (Manual) 3, Basophils % (Manual) 1, Metamyelocytes % 2 H, Myelocytes % 2 H, Diff Path Review May foll, Platelet Estimate ADEQUATE, Polychromasia RARE, Hypochromasia 1+, Anisocytosis RARE, Sodium 138, Potassium 3.4 L, Chloride 99, Carbon Dioxide 31.0, Anion Gap 8, BUN 43 H, Creatinine 0.88, Estim Creat Clear Calc 94.31, Est GFR (MDRD) Af Amer 112, Est GFR (MDRD) Non-Af 92, BUN/Creatinine Ratio 48.6 H, Glucose 108 H, Calcium 9.5, Phosphorus 3.2, Magnesium 2.1, Total Bilirubin 0.40, AST 69 H, ALT 57, Alkaline Phosphatase 89, C-React Prot Ext Range 300.00 H, Total Protein 6.9, Albumin 1.9 L, Globulin 5.0 H, Albumin/Globulin Ratio 0.4 L, TSH 2.07 01/17/23 08:48: ESR 48 H, Procalcitonin 0.28 H 01/17/23 10:30: MRSA (PCR) POSITIVE H Micro: Microbiology 01/17/23 15:51 Stool Stool Occult Blood (JUAN M) - Final Occult Blood Positive Radiology Impression Venous Doppler Study 01/16/23 15:47 Interpretation Summary Deep veins of the bilateral lower extremities are patent and compressible segmentally. There is no evidence of bilateral lower extremity deep vein thrombosis. The bilateral great saphenous veins appear patent and compressible segmentally. Ordering Physician: Dominique Hilliard Performed By: Ruben Piper RVT Assessment & Plan Assessment/Plan (1) Adult failure to thrive: (2) GI bleed: (3) Anemia: QUALIFIERS: Anemia type: iron deficiency Iron deficiency anemia type: unspecified iron deficiency Qualified Code(s): D50.9 - Iron deficiency anemia, unspecified PLAN: Plan Patient is a 62-year-old male with history of paraplegia, chronic Aguayo catheter, chronic wounds to right side of abdomen and leg, hypertension and GERD who presented to [facility] with worsening bilateral lower extremity swelling and weakness. 1. Acute on chronic normocytic anemia Hemoglobin 8.2 on admit. Per outside records, baseline hemoglobin appears to be around 9-10. Hemoglobin was notably 10.6 in 11/2022, 9.5 in 08/2022. Decreased to hemoglobin 6.8 on 01/15. Suspect secondary to patient's known history of hemorrhoids, as patient reports moderate bleeding from hemorrhoids over the last 1 to 2 weeks. Iron studies consistent with anemia of chronic disease. Stool guaiac not yet completed. -S/p transfusion 1 unit of PRBCs today. Monitor CBC daily. 2. Hemorrhoidal bleeding-he has external hemorrhoids and may have internal hemorrhoids that may be able to be addressed during his colonoscopy. External hemorrhoids would have to be surgically removed. He is agreeable to undergo endoscopic procedures. He was explained alternatives, risk, benefits including not withstanding bleeding, infection, sepsis, perforation, need for emergent surgery . He will have an ASA of 3. Charges/Coding Visit Charges Inpatient E&M: 76726 Init Hosp L3
[2023-01-17] MEDS: Bisacodyl 5 MG Tablet 20 MG PO (20:10)
[2023-01-17] MEDS: Electrolyte Solution/Peg's 4000 ML PO (20:19)
[2023-01-17] MEDS: Piperacil/Tazobactam 3.375 GM in 0.9% Normal Saline (50mL MB+) 50 ML IV (20:20)
[2023-01-18] VITALS (22 sets, daily range): BP systolic 71–145; BP diastolic 43–92; PULSE 68–139; RESP 9–48; TEMP 36.4–38; O2SAT 92–100; BMI 37.2
[2023-01-18] MEDS: 0.9% Saline Lock 10 ML Syringe IV (00:41)
--- NOTE | 2023-01-18 05:55 | EKG12_ITS ---
Test Reason : AM EKG Blood Pressure : / mmHG Vent. Rate : 103 BPM Atrial Rate : 103 BPM P-R Int : 170 ms QRS Dur : 158 ms QT Int : 382 ms P-R-T Axes : 032 014 181 degrees QTc Int : 500 ms Sinus tachycardia with occasional Premature ventricular complexes Left bundle branch block Abnormal ECG When compared with ECG of 15-JAN-2023 21:17, Premature ventricular complexes are now Present Premature supraventricular complexes are no longer Present Confirmed by PAULETTE TYSON, ILIA ([id number]), staff editor MARYJANE LAZARO ([id number]) on 02/15/2023 1:51:55 PM Referred By: Confirmed By:ILIA CALDWELL MD
[2023-01-18] MEDS: Vancomycin HCl 2,000 MG in 0.9% Normal Saline (500mL Bag) 500 ML 250 MG IV (06:32)
[2023-01-18] MEDS: Piperacil/Tazobactam 3.375 GM in 0.9% Normal Saline (50mL MB+) 50 ML IV ×2 (06:38→14:04)
[2023-01-18 07:05] LABS: Absolute Lymphocyte Count 1.12 X10^3/uL (0.83-4.51); Absolute Neutrophil Count 12.4 X10^3/uL (2.0-7.7); Basophil# 0.04 X10^3/uL; Basophil% 0.3 % (0-1); Eosinophil# 0.17 X10^3/uL; Eosinophils% 1.1 % (0-5); Hematocrit 28.5 % (40-54); Hemoglobin 8.9 g/dL (13.0-16.5); Lymphocyte # 1.12 X10^3/ul (0.83-4.51); Lymphocyte % 7.6 % (19-41); Mean Corp Hgb Conc 31.2 g/dL (32-36); Mean Corpuscular Volume 89.6 fL (80-94); Mean Platelet Vol. 8.8 fl (6.2-12.0); Monocyte# 0.52 X10^3/uL; Monocyte% 3.5 % (0-10); NRBC Flagged by Analyzer 0 % (0-5); Neutrophil # 12.37 X10^3/uL (2.7-7.7); Neutrophil % 83.6 % (47-70); Platelet Count 499 K/mm3 (150-450); RBC Distribution Width CV 18.6 % (11.6-14.6); RBC Distribution Width SD 61.3 fl (35.1-43.9); Red Blood Count 3.18 M/mm3 (4.6-6.2); White Blood Count 14.8 K/mm3 (4.4-11.0)
[2023-01-18 07:36] LABS: Anion Gap 8 (5-15); BUN 41 mg/dL (7-18); BUN/Creat Ratio 45.6 RATIO (10-20); Calcium,Total 9.5 mg/dL (8.5-10.1); Chloride 96 mmol/L (98-107); EST Glomerular Filtration Rate 91 mL/min (>60); Est Glom Filt Rate - Afr Amer 110 mL/min (>60); Estimated Creatinine Clearance 92.21 ml/min; Glucose 111 mg/dL (74-106); Potassium 3.4 mmol/L (3.5-5.1); Sodium Level 133 mmol/L (136-145)
[2023-01-18 08:29] LABS: International Normalized Ratio 1.3; Prothrombin Time (Protime)PT. 15.7 SECONDS (11.7-14.9)
[2023-01-18] MEDS: Metoprolol Tartrate 25 MG Tablet PO (08:29)
[2023-01-18 08:30] LABS: Partial Thromboplast Time 40.9 Seconds (24.1-36.2)
[2023-01-18] MEDS: Baclofen 10 MG Tablet 5 MG PO (08:32)
[2023-01-18] MEDS: Potassium Chloride Oral Tablet 20 MEQ 40 MEQ PO (08:33)
--- NOTE | 2023-01-18 08:55 | RAD_ITS ---
STUDY: X-RAY CHEST REASON FOR EXAM: Male, 62 years old. Hypoxia TECHNIQUE: Single AP portable view of the chest. COMPARISON: Comparison is made with prior study dated January 11, 2023. FINDINGS: EKG electrodes are seen. Mild degree of increased markings at the left lung base suggestive of left basilar atelectasis and/or early infiltrate. There is no demonstrated pleural abnormality. Normal size heart. Normal mediastinum and alysa. Normal visualized pulmonary arteries. Normal visualized aortic arch and descending thoracic aorta. There are diffuse degenerative changes of the visualized thoracic spine. Normal visualized ribs, clavicles, and shoulders. There is no demonstrated abnormality of the visualized soft tissue structures of the upper abdomen. RAD/Chest 1 View (Portable) IMPRESSION: Mild increased markings at the left lung base suggestive of atelectasis and/or early infiltrate Electronically Signed: Joseph Flores MD at 9:46 EDT ,
--- NOTE | 2023-01-18 08:58 | EKG12_ITS ---
Test Reason : AFIB Blood Pressure : / mmHG Vent. Rate : 140 BPM Atrial Rate : 000 BPM P-R Int : 000 ms QRS Dur : 142 ms QT Int : 332 ms P-R-T Axes : 000 031 220 degrees QTc Int : 506 ms Critical Test Result: High HR SINUS TACHYCARDIA Left bundle branch block Abnormal ECG When compared with ECG of 18-JAN-2023 05:46, MANUAL COMPARISON REQUIRED, DATA IS UNCONFIRMED Confirmed by PAULETTE TYSON, ILIA ([id number]), avid editor MARYJANE LAZARO ([id number]) on 02/15/2023 1:51:40 PM Referred By: ELLIOT Confirmed By:ILIA CALDWELL MD
[2023-01-18] MEDS: Acetaminophen 325 MG Tablet 650 MG PO (09:25)
[2023-01-18] MEDS: Gabapentin 100 MG Capsule 200 MG PO (09:25)
[2023-01-18] MEDS: Menthol/Lanolin/Calamine/Znox 113 GM Tube 1 APPLIC TOPICAL (09:26)
[2023-01-18] MEDS: Miconazole Nitrate 43 GM Bottle 1 APPLIC TOPICAL (09:26)
[2023-01-18] MEDS: Iron Polysaccharide Complex 150 MG CAPSULE PO (09:27)
[2023-01-18] MEDS: tiZANidine HCl 2 MG Tablet PO (09:28)
[2023-01-18] MEDS: Famotidine 20 MG Tablet PO (09:28)
[2023-01-18] MEDS: Ensure Plus High Protein 120 ML LIQUID PO (09:28)
[2023-01-18] MEDS: Juven (unflavored) Packet 1 PACKET PO (09:28)
--- NOTE | 2023-01-18 09:30 | MRI_ITS ---
STUDY: MR PELVIS WITH T WITHOUT CONTRAST REASON FOR EXAM: Male, 62 years old. Infection with elevated CRP. Paraplegic. Evaluate for source of infection. TECHNIQUE: Multisequence multiplanar imaging of the pelvis was performed before and after the intravenous administration of 24ml of Clariscan contrast. COMPARISON: FINDINGS: Diffuse soft tissue swelling lateral to the proximal femur and pelvis compatible with cellulitis. 2 large complex fluid collections on the right, the most proximal one adjacent to the greater trochanter of the right hip with an extension of the fluid to the superficial soft tissues of the lateral hip. This fluid collection has an enhancing rim and measures approximately 5.9 cm x 5.1 cm x 4.8 cm. Large right hip effusion with adjacent high signal intensity within the musculature surrounding the right hip compatible with myositis. Large complex fluid collection in the proximal and medial right thigh originating at approximately the level of the obturator muscles and extending into the mid thigh. This complex fluid collection measures over 21 cm proximal to distal, is nearly 8 cm wide and is 9 cm medial to lateral. Contrast enhancement peripherally in this fluid collection is also present. Both of these fluid collections are compatible with large soft tissue abscesses. For confirmation of infection, ultrasound-guided aspiration of these large cysts could be performed. Left hip effusion also noted with diffuse myositis. Diffuse muscle atrophy noted, compatible with the patient''s paraplegia. MRI/Pelvis W/WO Contrast IMPRESSION: 2 large fluid collections in the proximal right lower extremity as described above. Collections are compatible with large abscesses with complex fluid collections in both. For confirmation of infection, ultrasound-guided aspiration of one or both of these could be performed. Electronically Signed: Kaiden Chamberlain MD at 11:48 EDT ,
[2023-01-18] MEDS: traMADol 50 MG Tablet PO (09:31)
[2023-01-18 09:45] LABS: Magnesium 1.9 mg/dL (1.6-2.6)
[2023-01-18 09:46] LABS: Pathologist Review Reviewed
[2023-01-18 09:55] LABS: Pathologist Review Reviewed
[2023-01-18 10:13] LABS: Troponin-I HS 112 pg/mL (3.0-78.0)
[2023-01-18 12:06] LABS: Troponin-I HS 273 pg/mL (3.0-78.0)
[2023-01-18] MEDS: 0.9% Normal Saline (1000mL) 1,000 ML 999 ML IV ×2 (13:02→14:03)
--- NOTE | 2023-01-18 13:10 | NURSING ---
lab drawing labs md in room able to contact via patients phone cell. will transfer to icu report given to mateus
--- NOTE | 2023-01-18 13:35 | EKG12_ITS ---
Test Reason : RHYTHM CHANGE Blood Pressure : / mmHG Vent. Rate : 083 BPM Atrial Rate : 083 BPM P-R Int : 174 ms QRS Dur : 160 ms QT Int : 414 ms P-R-T Axes : 043 035 -75 degrees QTc Int : 486 ms Sinus rhythm with Premature supraventricular complexes Left bundle branch block Abnormal ECG When compared with ECG of 18-JAN-2023 08:19, MANUAL COMPARISON REQUIRED, DATA IS UNCONFIRMED Confirmed by PAULETTE TYSON, ILIA ([id number]), associate entertainment editor MARYJANE LAZARO ([id number]) on 02/21/2023 12:59:10 PM Referred By: SEVERIANO Confirmed By:ILIA CALDWELL MD
[2023-01-18 13:46] LABS: Base Excess 3 mmol/L (-2 to +2); Bicarbonate 27.7 mmol/L (22-26); Blood Gas Specimen Type ART; Mode Not entered; O2 Delivery Device Cannula; PO2 86 mmHG (75-100); SITE L Brach; SO2 97 % (95-99); Total Carbon Dioxide 29 mmol/L; pCO2 41.8 mmHg (35-45); pH 7.43 (7.35-7.45)
[2023-01-18 13:51] LABS: Lactic Acid 3.1 mmol/L (0.4-1.9)
[2023-01-18 13:53] LABS: Bedside Glucose 114 mg/dL (74-106)
[2023-01-18] MEDS: Norepinephrine 8 MG in 0.9% Normal Saline (250mL Bag) 242 ML 9.4 MG CONT INF (14:20)
[2023-01-18] MEDS: Lactated Ringers 1,000 ML 999 ML IV ×2 (15:04→16:06)
--- NOTE | 2023-01-18 15:25 | RAD_ITS ---
STUDY: X-RAY CHEST REASON FOR EXAM: Male, 62 years old. Central line placement TECHNIQUE: Single AP portable view of the chest. COMPARISON: Comparison is made with prior study done earlier today. FINDINGS: A left-sided central catheter has been placed. The tip is in the midportion of the left brachiocephalic vein. RAD/CXR for Line Placement IMPRESSION: The tip of the left sided central catheter is in the midportion of the left brachiocephalic vein. The lungs are unchanged. Electronically Signed: Joseph Flores MD at 15:50 EDT ,
--- NOTE | 2023-01-18 15:29 | CON.PCM.ID_ITS ---
Assessment & Plan Assessment/Plan (1) Abscess of right leg: PLAN: Bcx neg here. MRI shows two large collections, recommend cont empiric vanc/zosyn, transfer for surgical eval. Will follow, thank you, d/w Dr. Hilliard HPI Consult Data Date of Consult: 01/18/23 HPI Narrative Reason for Consultation: leukocytosis HPI Narrative: ERUM PIPER, is a 62 M with paraplegia due to trauma, then had multiple procedures at [facility], [place], has baclofen pump in place, presented 01/14 with several weeks worsening swelling in BLE. No fever or chills. Admitted here, had persistent leukocytosis and elevated inflammatory markers. MRI of pelvis from today now shows two large possible abscesses in R upper leg. Moved to icu, feeling ok. Full ROS performed and neg except as noted above. [facility] Medical History Accident at workplace CHF (congestive heart failure) Chronic anemia GERD (gastroesophageal reflux disease) Hypertension Obesity Paraplegia, unspecified Home Medications amlodipine 10 mg tablet 10 mg PO DAILY 01/11/23 [History Last Taken Unknown] baclofen 10 mg tablet 5 mg PO BID 01/11/23 [History Last Taken Unknown] chlorthalidone 25 mg tablet 25 mg PO DAILY 01/11/23 [History Last Taken Unknown] diazepam 5 mg tablet 5 mg PO QHS PRN sleep 01/11/23 [History Last Taken Unknown] famotidine 40 mg tablet 20 mg PO DAILY 01/11/23 [History Last Taken Unknown] furosemide 40 mg tablet (Lasix) 40 mg PO DAILY #4 tabs 01/11/23 [Rx Last Taken Unknown] gabapentin 100 mg capsule 200 mg PO BID 01/11/23 [History Last Taken Unknown] silver sulfadiazine 1 % topical cream 1 applic topical DAILY 01/11/23 [History Last Taken Unknown] tizanidine 2 mg tablet 2 mg PO BID 01/11/23 [History Last Taken Unknown] tramadol 50 mg tablet 50 mg PO BID 01/11/23 [History Last Taken Unknown] Allergy/AdvReac Type Severity Reaction Status Date / Time No Known Allergies Allergy Verified 01/14/23 20:30 Family History Father CAD (coronary artery disease) Heart disease Hypertension Mother No problems noted. Surgical History History of back surgery History of skin surgery History of surgery on lower extremity S/P appendectomy Social History household members: spouse Smoking Status: Never smoker alcohol intake: never substance use type: does not use Physical Exam Const alert and no apparent distress General Appearance: cooperative HEENT normocephalic and head/scalp atraumatic Eyes PERRL and EOMs intact bilaterally Neck supple and No nodes Resp normal air movement and clear to auscultation bilaterally Cardio Rate: tachycardic Heart Sounds: Negative for murmur GI soft to palpation, non-tender and non-distended Extremity General Extremity: edema Skin Skin Narrative: R upper thigh with some induration, no redness Neuro CN's II-XII intact bilaterally Medical Records Data Medical Nutrition Assessment Dietitian: Malnutrition Criteria Met Start: 01/15/23 14:54 Freq: Status: Active Protocol: Document 01/18/23 14:12 (Rec: 01/18/23 14:12 [id number]) Nutrition Malnutrition Evidence of Malnutrition Exists Yes Malnutrition (moderate): Acute Illness/Injury Evidenced By Suboptimal Energy Intake ( Moderate),Weight Loss ( Moderate) Intake Problem Increased Nutrient Needs (specify) Etiology (protein) related to wound healing Signs/Symptoms as evidenced by open surgical wound on left upper thigh. Status Active Problem Clinical Problem Acute Disease or Injury Related Malnutrition Etiology related to physiological changes causing decreased oral intakes Signs/Symptoms as evidenced by poor oral intakes of less than 75% of estimated nutrient needs x 1 week as well as significant weight loss of 1.5% in 4 days. Status Active Problem Recommendation Dietitian Recommendations/Changes When medically appropriate, recommend regular/sodium restricted diet; will continue David BID and Ensure Plus High Protein 120mL 4x/day w/ medpass Lab / Micro Data Attestation: I reviewed the patient's lab results. 01/18/23 06:47 01/18/23 06:47 Labs: Laboratory Results - last 24 hr 01/16/23 09:45: Diff Path Review Reviewed 01/17/23 05:10: Diff Path Review Reviewed 01/18/23 06:47: WBC 14.8 H, RBC 3.18 L, Hgb 8.9 L, Hct 28.5 L, MCV 89.6, MCH 28.0, MCHC 31.2 L D, RDW Std Deviation 61.3 H, RDW Coeff of Rola 18.6 H, Plt Count 499 H, MPV 8.8, Immature Gran % (Auto) 3.900 H, Neut % (Auto) 83.6 H, Lymph % (Auto) 7.6 L, [place] % (Auto) 3.5, Eos % (Auto) 1.1, Baso % (Auto) 0.3, Absolute Neuts (auto) 12.4 H, Absolute Lymphs (auto) 1.12, Nucleated RBC % 0, PT 15.7 H, INR 1.3, APTT 40.9 H, Sodium 133 L, Potassium 3.4 L, Chloride 96 L, Carbon Dioxide 29.0, Anion Gap 8, BUN 41 H, Creatinine 0.90, Estim Creat Clear Calc 92.21, Est GFR (MDRD) Af Amer 110, Est GFR (MDRD) Non-Af 91, BUN/Creatinine Ratio 45.6 H, Glucose 111 H, Calcium 9.5, Magnesium 1.9 01/18/23 09:41: Troponin I High Sens 112 H 01/18/23 11:20: Troponin I High Sens 273 H* 01/18/23 13:10: Lactic Acid 3.1 H* 01/18/23 13:30: POC Glucose 114 H Micro: Microbiology 01/18/23 04:36 Stool Stool Occult Blood (JUAN M) - Final Occult Blood Positive 01/17/23 15:51 Stool Stool Occult Blood (JUAN M) - Final Occult Blood Positive ABG Data ABG results: ABG 01/18/23 13:42 Specimen Type ART Sample Site L Brach pH 7.43 Bicarbonate Actual 27.7 H Total CO2 29 Base Excess 3 H O2 Saturation 97 O2 % 3.0 ABG pCO2 41.8 ABG pO2 86 O2 Delivery Device Cannula Vent Mode Not entered Radiology Impression Venous Doppler Study 01/16/23 15:47 Interpretation Summary Deep veins of the bilateral lower extremities are patent and compressible segmentally. There is no evidence of bilateral lower extremity deep vein thrombosis. The bilateral great saphenous veins appear patent and compressible segmentally. Ordering Physician: Dominique Hilliard Performed By: Ruben Piper RVT X-Ray 01/17/23 18:24 IMPRESSION: Pump device in the left lower quadrant. Correlation with specific device type and activity recommended prior to MRI scanning. The patient is not cleared for MRI. Electronically Signed: Matthew Jackson MD at 18:59 EDT , Chest X-Ray 01/18/23 08:55 IMPRESSION: Mild increased markings at the left lung base suggestive of atelectasis and/or early infiltrate Electronically Signed: Joseph Flores MD at 9:46 EDT , Pelvis MRI 01/18/23 09:30 IMPRESSION: 2 large fluid collections in the proximal right lower extremity as described above. Collections are compatible with large abscesses with complex fluid collections in both. For confirmation of infection, ultrasound-guided aspiration of one or both of these could be performed. Electronically Signed: Kaiden Chamberlain MD at 11:48 EDT ,
--- NOTE | 2023-01-18 15:52 | CON.PCM.CC_ITS ---
Assessment & Plan Assessment/Plan (1) Abscess of right leg: PLAN: Plan Assessment Septic shock secondary to large abscess of the right lower extremity as well as left hip myositis Hypoxic respiratory failure Metabolic encephalopathy secondary to sepsis lactic Acidosis Anemia concern for GI bleed Elevated troponins most likely type II ischemia CHF T7 Paraplegia Chronic decubitus ulcers Hypertension Plan * Patient arrived to the ICU was hypotensive. He has received a total of around 3.5 L continue to be hypotensive Levophed was started * Patient is on broad-spectrum antibiotics blood cultures are pending * Patient was accepted to [facility] for surgical management of his right LE abscess * Patient is requiring 4 to 5 L of oxygen. Wean oxygen as tolerated. There is congestion on his chest x-ray. He will not tolerate Lasix at this time given his hypotension * Pt's troponins have trended up, no EKG changes noted. likely demand ischemia given sepsis. cardiology is on board. trend trops, * Pt is anemic there is concern for GI bleed. He received a unit of packed RBCs. GI is on board * DVT ppx: SCDs I spent 33 minutes of critical care time excluding the procedure time. I reviewed lab work, images, previous records and medication list. HPI Consult Data Date of Consult: 01/18/23 HPI Narrative Reason for Consultation: Septic shock HPI Narrative: ERUM PIPER, is a 62 M past medical history of chronic decub's, chronic [place], debility and paraplegia due to trauma as well as history of multiple orthopedic procedures and baclofen pump who presented on January 14 with lethargy and lower extremity edema. Has been a concern for sepsis by primary team and today patient underwent pelvic MRI which showed 2 large fluid collections in the proximal right lower extremity as well as Large right hip effusion with adjacent high signal intensity within the musculature surrounding the right hip compatible with myositis. Left hip effusion also noted with diffuse myositis.. Patient clinical status to deteriorated afternoon while he was in the floor he was hypotensive and febrile. He was transferred to the ICU due to septic shock. He currently receiving a total of 3.5 L of IV fluids to complete 30 cc an hour. However he has been persistently hypotensive and Levophed was initiated. [facility] Medical History Accident at workplace CHF (congestive heart failure) Chronic anemia GERD (gastroesophageal reflux disease) Hypertension Obesity Paraplegia, unspecified Home Medications amlodipine 10 mg tablet 10 mg PO DAILY 01/11/23 [History Last Taken Unknown] baclofen 10 mg tablet 5 mg PO BID 01/11/23 [History Last Taken Unknown] chlorthalidone 25 mg tablet 25 mg PO DAILY 01/11/23 [History Last Taken Unknown] diazepam 5 mg tablet 5 mg PO QHS PRN sleep 01/11/23 [History Last Taken Unknown] famotidine 40 mg tablet 20 mg PO DAILY 01/11/23 [History Last Taken Unknown] furosemide 40 mg tablet (Lasix) 40 mg PO DAILY #4 tabs 01/11/23 [Rx Last Taken Unknown] gabapentin 100 mg capsule 200 mg PO BID 01/11/23 [History Last Taken Unknown] silver sulfadiazine 1 % topical cream 1 applic topical DAILY 01/11/23 [History Last Taken Unknown] tizanidine 2 mg tablet 2 mg PO BID 01/11/23 [History Last Taken Unknown] tramadol 50 mg tablet 50 mg PO BID 01/11/23 [History Last Taken Unknown] Allergy/AdvReac Type Severity Reaction Status Date / Time No Known Allergies Allergy Verified 01/14/23 20:30 Family History Father CAD (coronary artery disease) Heart disease Hypertension Mother No problems noted. Surgical History History of back surgery History of skin surgery History of surgery on lower extremity S/P appendectomy Social History household members: spouse Smoking Status: Never smoker alcohol intake: never substance use type: does not use Physical Exam Const no apparent distress General Appearance: lethargic HEENT normocephalic and head/scalp atraumatic Eyes EOMs intact bilaterally and conjunctivae normal Eyes Narrative: Conjunctiva are mildly pale bilaterally Neck no lymphadenopathy and supple Neck Narrative: Trachea midline, no thyroid enlargement Resp normal respiratory effort, normal air movement and clear to auscultation bilaterally Auscultation: Negative for rales or wheezes Cardio regular rate, regular rhythm, S1 normal heart sound, S2 normal heart sound, no murmurs, no rub, no gallops, no clicks and peripheral pulses 2+ throughout GI normal to inspection, nondistended, normoactive bowel sounds, soft to palpation and non-tender Extremity Extremity Narrative: Trace to 1+ bilateral lower extremity pitting edema with no clubbing or cyanosis Neuro oriented x3 Neuro Narrative: Unable to move lower extremities bilaterally, sensory deficit from T7 distally, upper extremity movement is normal with no signs of significant weakness Speech: speech normal Psych mental status grossly normal Psych Narrative: Very pleasant, interacts appropriately Medical Records Data Medical Nutrition Assessment Dietitian: Malnutrition Criteria Met Start: 01/15/23 14:54 Freq: Status: Active Protocol: Document 01/18/23 14:12 AG (Rec: 01/18/23 14:12 [id number]) Nutrition Malnutrition Evidence of Malnutrition Exists Yes Malnutrition (moderate): Acute Illness/Injury Evidenced By Suboptimal Energy Intake ( Moderate),Weight Loss ( Moderate) Intake Problem Increased Nutrient Needs (specify) Etiology (protein) related to wound healing Signs/Symptoms as evidenced by open surgical wound on left upper thigh. Status Active Problem Clinical Problem Acute Disease or Injury Related Malnutrition Etiology related to physiological changes causing decreased oral intakes Signs/Symptoms as evidenced by poor oral intakes of less than 75% of estimated nutrient needs x 1 week as well as significant weight loss of 1.5% in 4 days. Status Active Problem Recommendation Dietitian Recommendations/Changes When medically appropriate, recommend regular/sodium restricted diet; will continue David BID and Ensure Plus High Protein 120mL 4x/day w/ FAGUO Lab / Micro Data 01/18/23 06:47 01/18/23 06:47 Labs: Laboratory Results - last 24 hr 01/16/23 09:45: Diff Path Review Reviewed 01/17/23 05:10: Diff Path Review Reviewed 01/18/23 06:47: WBC 14.8 H, RBC 3.18 L, Hgb 8.9 L, Hct 28.5 L, MCV 89.6, MCH 28.0, MCHC 31.2 L D, RDW Std Deviation 61.3 H, RDW Coeff of Rola 18.6 H, Plt Count 499 H, MPV 8.8, Immature Gran % (Auto) 3.900 H, Neut % (Auto) 83.6 H, Lymph % (Auto) 7.6 L, [place] % (Auto) 3.5, Eos % (Auto) 1.1, Baso % (Auto) 0.3, Absolute Neuts (auto) 12.4 H, Absolute Lymphs (auto) 1.12, Nucleated RBC % 0, PT 15.7 H, INR 1.3, APTT 40.9 H, Sodium 133 L, Potassium 3.4 L, Chloride 96 L, Carbon Dioxide 29.0, Anion Gap 8, BUN 41 H, Creatinine 0.90, Estim Creat Clear Calc 92.21, Est GFR (MDRD) Af Amer 110, Est GFR (MDRD) Non-Af 91, BUN/Creatinine Ratio 45.6 H, Glucose 111 H, Calcium 9.5, Magnesium 1.9 01/18/23 09:41: Troponin I High Sens 112 H 01/18/23 11:20: Troponin I High Sens 273 H* 01/18/23 13:10: Lactic Acid 3.1 H* 01/18/23 13:30: POC Glucose 114 H Micro: Microbiology 01/18/23 04:36 Stool Stool Occult Blood (JUAN M) - Final Occult Blood Positive 01/17/23 15:51 Stool Stool Occult Blood (JUAN M) - Final Occult Blood Positive ABG Data ABG results: ABG 01/18/23 13:42 Specimen Type ART Sample Site L Brach pH 7.43 Bicarbonate Actual 27.7 H Total CO2 29 Base Excess 3 H O2 Saturation 97 O2 % 3.0 ABG pCO2 41.8 ABG pO2 86 O2 Delivery Device Cannula Vent Mode Not entered Radiology Impression Venous Doppler Study 01/16/23 15:47 Interpretation Summary Deep veins of the bilateral lower extremities are patent and compressible segmentally. There is no evidence of bilateral lower extremity deep vein thrombosis. The bilateral great saphenous veins appear patent and compressible segmentally. Ordering Physician: Dominique Hilliard Performed By: Ruben Piper RVT X-Ray 01/17/23 18:24 IMPRESSION: Pump device in the left lower quadrant. Correlation with specific device type and activity recommended prior to MRI scanning. The patient is not cleared for MRI. Electronically Signed: Matthew Jackson MD at 18:59 EDT , Chest X-Ray 01/18/23 08:55 IMPRESSION: Mild increased markings at the left lung base suggestive of atelectasis and/or early infiltrate Electronically Signed: Joseph Flores MD at 9:46 EDT , Pelvis MRI 01/18/23 09:30 IMPRESSION: 2 large fluid collections in the proximal right lower extremity as described above. Collections are compatible with large abscesses with complex fluid collections in both. For confirmation of infection, ultrasound-guided aspiration of one or both of these could be performed. Electronically Signed: Kaiden Chamberlain MD at 11:48 EDT , Chest X-Ray 01/18/23 15:25 IMPRESSION: The tip of the left sided central catheter is in the midportion of the left brachiocephalic vein. The lungs are unchanged. Electronically Signed: Joseph Flores MD at 15:50 EDT , Sepsis Attestation Sepsis Alert: Yes Sepsis Attestation: Agree w/Sepsis Date exam was performed: 01/18/23 Time exam was performed: 13:30 Possible Source of Sepsis: Bone/joint Sepsis Organ Dysfunction Criteria Present: SBP < 90 mmHg or MAP < 65 mmHg and New/Unexplained change in mental status Fluid Resuscitation Fluid resuscitation indicated?: Yes Fluid Resuscitation ordered: 30 ml/kg fluid bolus ordered Amount of fluid ordered: 3,600 Sepsis Note Date exam was performed: 01/18/23 Time exam was performed: 15:30 Sepsis Attestation: Sepsis re-evaluation was performed Response to fluids: Vasopressors started Charges/Coding Procedures Hospitalists Procedures: 87779 Critial Care 1st Hr
--- NOTE | 2023-01-18 16:15 | PRO.PCM_ITS ---
Procedure Report Date of Procedure: 01/18/23 Central Line Procedure Note INDICATION: Septic shock CONSENT: During the informed consent discussion regarding the procedure, or treatment, I explained the following to the patient/designee: a. Nature of the procedure or treatment and who will perform the procedure or treatment. b. Necessity for procedure and the possible benefits. c. Risks and complications (most common and serious). d. Alternative treatments and the risks, benefits and side effects of each (including no treatment). e. Likelihood of the patient achieving his/her goals without this procedure and surgery treatment. f. Problems that might occur during the recuperation. g. Conflicts of interest, if any PROCEDURE SUMMARY: A time out was performed. My hands were washed immediately prior to the procedure. I wore a surgical cap, mask with protective eyewear, full gown and sterile gloves throughout the procedure. The patient was placed in Trendelenburg position. LEFT chest region was prepped using chlorhexidine scrub and draped in sterile fashion using a full drape and sterile probe cover and sterile gel employed. The medial and lateral heads of the sternocleidomastoid muscle were identified as was the carotid pulse. The Internal Jugular vein was identified using the ultrasound. Anesthesia was achieved over the vein using 1% lidocaine. Using real-time out of plane guidance, the introducer needle was inserted into the Internal Jugular vein under direct ultrasound visualization. Venous blood was withdrawn. The syringe was removed and a guidewire was advanced into the introducer needle. The guidewire was visualized in the Internal Jugular Vein by ultrasound. A small incision was made at the skin surface with a scalpel and the introducer needle was exchanged for a dilator over the guidewire. After appropriate dilation was obtained, the dilator was exchanged over the wire for a 7fr central venous catheter. The wire was removed and the catheter was sutured in place at 16cm. A sterile sorbaview shield was placed over the catheter at the insertion site. The patient tolerated the procedure without any hemodynamic compromise. At time of procedure completion, all ports aspirated and flushed properly. Post- procedure chest x-ray is pending at this time. Estimated blood loss is 5mL. Procedures Hospitalists Procedures: 11878 Insert Non-tunnel CV Cath
--- NOTE | 2023-01-18 16:24 | DS.PCM_ITS ---
Providers Date of Admission: 01/15/23 Date of Discharge: 01/18/23 Primary Care Physician: Dr. Ryan Welch MD Consultations 01/14/23 23:32 Consult: Onc/Wound/pharmacist intern Routine Comment: Reason for Consult:: LE wounds. 01/15/23 01:10 Consult: Cardiology Routine Consulting Provider: Diaz Saldaña Reason for Consult: Significant SVT episode, admit w/ edema/? CHF underlying EMERGENT Consult: No Notified: Yes Date Notified: 01/15/23 Time Notified: 01:10 Method of Notification: Text 01/16/23 09:25 Consult: Gastroenterology Routine Consulting Provider: [facility] Reason for Consult: anemia/bleeding hemorrhoids EMERGENT Consult: No Notified: Yes Date Notified: 01/16/23 Time Notified: 09:25 Method of Notification: Verbal 01/18/23 08:53 Consult: Infectious Disease Routine Consulting Provider: Fortino Cruz Reason for Consult: infection of unknown etilogy EMERGENT Consult: No Notified: Yes Date Notified: 01/18/23 Time Notified: 09:44 Method of Notification: Text 01/18/23 12:48 Consult: Computer Console Operator / Pulmonary Medicine Routine Consulting Provider: Pulmonary Medicine [facility] Reason for Consult: sepsis EMERGENT Consult: No Notified: Yes Date Notified: 01/18/23 Time Notified: 12:49 Method of Notification: Verbal Reason For Visit: EDEMA, ADULT FTT Diagnosis Discharge Diagnosis (1) Abscess of right leg: Status: Acute Code(s): L02.415 - Cutaneous abscess of right lower limb Medications at Discharge Home Medications amlodipine 10 mg tablet 10 mg PO DAILY 01/11/23 baclofen 10 mg tablet 5 mg PO BID 01/11/23 chlorthalidone 25 mg tablet 25 mg PO DAILY 01/11/23 diazepam 5 mg tablet 5 mg PO QHS PRN sleep 01/11/23 famotidine 40 mg tablet 20 mg PO DAILY 01/11/23 furosemide 40 mg tablet (Lasix) 40 mg PO DAILY #4 tabs 01/11/23 gabapentin 100 mg capsule 200 mg PO BID 01/11/23 silver sulfadiazine 1 % topical cream 1 applic topical DAILY 01/11/23 tizanidine 2 mg tablet 2 mg PO BID 01/11/23 tramadol 50 mg tablet 50 mg PO BID 01/11/23 Hospital Course Procedures 2-D Echocardiogram, Blood transfusion (1 unit on 01/15/2023), EKG and - (Chest x- ray/CTA chest/lower extremity Dopplers/MRI pelvis) Summary of Care Provided Minutes Spent on Discharge: 45 Hospital Course: Mr. Duncan is a 62-year-old white male with a history of paraplegia from T7 down, chronic wounds and a chronic Aguayo who presented to the emergency [facility] with worsening generalized weakness, debility and, bilateral lower extremity edema. He was in the emergency department recently on 01/11/2023 for his lower extremity edema and venous duplexes were done and unremarkable for any signs of clots. They recommended snug Cedric wrap with elevation and a short course of Lasix for his lower extremity edema that was felt to be venous stasis related. He represented on 01/14/2023 due to ongoing swelling and increased weakness. His also stated on admission for the past several weeks prior to presentation he had been taking Faith tap ET and his sister who is a nurse thought that this could be contributing to all of his issues. Patient reported occasional hemorrhoidal bleeding but denied any significant black or tarry stools. Vital signs on admission were unremarkable. CBC did show an anemia with a hemoglobin of 8.2 and a platelet count of 471, and he had a left shift with no leukocytosis. Chemistry panel was overall unremarkable. A D-dimer was obtained and found to be elevated. We obtained a CTA of his chest this morning which was unremarkable for any acute findings. Repeat Dopplers were unremarkable for any DVT an echocardiogram was obtained on 01/16/2023 and showed normal LV function with an EF of 55% however he has does have stage I diastolic dysfunction. He was initially treated with Lasix which improved his lower extr emity swelling however he had a persistent thrombocytosis and I was concerned that with an elevated D-dimer that there may be an unidentified infection. He also had a drop in his hemoglobin and the patient did report hemorrhoidal bleeding. Iron studies were consistent with anemia of chronic disease not iron deficiency however his guaiac stool was positive. GI was consulted and plan was for an EGD and colonoscopy to be performed today however the patient decompensated medically and this was deferred. Hemoglobin has been stable. He was started on oral iron. His UA was not consistent with infection and his chest x-ray and CT were unremarkable for any infiltrate or findings consistent with pneumonia. I obtained blood cultures and get a sed rate and CRP. Cultures were pending at the time of discharge. An MRSA PCR was obtained and found to be positive. His sed rate was elevated at 48 and his CRP was greater than 300. With these findings I started empiric antibiotics with Zosyn and vancomycin. The patient is paraplegic as noted above so we pursued MRI of the thoracic, lumbar, and pelvis area. The patient has a baclofen pump in place and per the manager utility it can heat up with MRI so we had to choose one area to MRI at a time. We elected to MRI his pelvis and extensive abscess was identified in the proximal right lower extremity that extends into the right hip. 1 fluid collection was 5.9 x 5.1 x 4.8 cm the other fluid collection was 21 x 8 x 9 cm. He also had a left hip effusion and the surrounding musculature was consistent with myositis. First dose of antibiotics was given midday on 01/17/2023. By the a.m. of 01/18/2023 the patient was febrile, tachycardic, and tachypneic. He developed hypoxia. His chest x-ray was unremarkable and I suspect all of these findings were related to cytokine release after bacterial lysis with the administration of antibiotics and expected SIRS response. The patient was treated with fluid boluses and maintained on IV antibiotics and we transferred him to the ICU for hypotension. He did require placement of a central line and initiation of pressors. At the time of discharge she was on 5 mcg/min of Levophed. I discussed the findings on MRI with orthopedic surgery and they deferred treatment to tertiary center. He had previous surgery done in August by Dr. Fam-plastic surgery at [facility] so we called [facility] and they were able to accept him for transfer into the medical ICU with plans for surgical consultation upon arrival. The patient was responding to IV fluid boluses and pressors and his blood pressure at the time of discharge was improving. His mental status was also improving. I discussed the case with his on the phone and again at bedside prior to discharge. Patient was transferred in critical but stable condition at the time of transfer. He was transferred by land via ambulance capable for ICU care. He was excepted for care by Dr. Pittman in the MICU at [facility] in [place]. Discharge diagnoses: Septic shock secondary to right thigh abscess GI bleed-suspected hemorrhoidal--> hemoglobin has been stable Thrombocytosis Elevated D-dimer with negative CTA of the chest and bilateral lower extremity Dopplers HFpEF Leukocytosis Hypokalemia Lactic acidosis Troponin elevation-likely related to demand ischemia with sepsis Bilateral lower extremity edema Generalized weakness and debility History of hypertension History of T7 paraplegia-complete GERD Chronic wounds Physical Exam Const alert and well nourished; Negative for oriented x3, no apparent distress, average body habitus, no limitations or healthy appearing Constitutional Narrative: Obese, white male, lying in bed, oriented to self and month but not location or year, appears toxic, nursing at bedside General Appearance: cooperative, well kempt, well developed, lethargic, ill appearing and diaphoretic; Negative for comfortable Orientation / Consciousness: awake and oriented to person Exam Limitations: altered mental status Nutritional Appearance: obese HEENT normocephalic, head/scalp atraumatic, hearing grossly normal bilaterally and moist oral mucous membranes HEENT Narrative: Mallampati 3, no thrush Eyes PERRL and EOMs intact bilaterally Eyes Narrative: Conjunctiva are mildly pale bilaterally, no scleral icterus Neck no lymphadenopathy and supple Neck Narrative: Trachea midline, no thyroid enlargement Resp no retractions, no use of accessory muscles and clear to auscultation bilaterally Resp Narrative: Tachypneic, mildly diminished at bases bilaterally Auscultation: Negative for rales, rhonchi or wheezes Cardio regular rhythm, S1 normal heart sound, S2 normal heart sound, no murmurs, no rub, no gallops and no clicks Cardio Narrative: Sinus tachycardia GI normal to inspection, nondistended, normoactive bowel sounds, soft to palpation and non-tender Extremity Extremity Narrative: Trace bilateral lower extremity edema improved, small abrasion on left knee that seems to be healing well, well-healing incision on right medial thigh from just above knee towards groin, no clubbing or cyanosis Skin no rashes or lesions noted, No no wounds and no jaundice Skin Narrative: Wounds per wound documentation noted and reviewed, pale skin and patient is diaphoretic Neuro CN's II-XII intact bilaterally Neuro Narrative: Extremity movement is intact without any pain, patient with T7 paraplegia, sensory deficits from T7 down as well, patient is confused Sensorium / Orientation: awake, alert and oriented to person; Negative for oriented to place or oriented to time Psych Psych Narrative: Significant confusion Medical Records Data Medical Nutrition Assessment Dietitian: Malnutrition Criteria Met Start: 01/15/23 14:54 Freq: Status: Active Protocol: Document 01/18/23 14:12 (Rec: 01/18/23 14:12 [id number]) Nutrition Malnutrition Evidence of Malnutrition Exists Yes Malnutrition (moderate): Acute Illness/Injury Evidenced By Suboptimal Energy Intake ( Moderate),Weight Loss ( Moderate) Intake Problem Increased Nutrient Needs (specify) Etiology (protein) related to wound healing Signs/Symptoms as evidenced by open surgical wound on left upper thigh. Status Active Problem Clinical Problem Acute Disease or Injury Related Malnutrition Etiology related to physiological changes causing decreased oral intakes Signs/Symptoms as evidenced by poor oral intakes of less than 75% of estimated nutrient needs x 1 week as well as significant weight loss of 1.5% in 4 days. Status Active Problem Recommendation Dietitian Recommendations/Changes When medically appropriate, recommend regular/sodium restricted diet; will continue David BID and Ensure Plus High Protein 120mL 4x/day w/ medpass Weight / BMI Weight Weight: 124.6 kg Body Mass Index (BMI) 37.2 ABG / Lab / Microbiology Data 01/18/23 06:47 01/18/23 06:47 Laboratory: Laboratory Results - last 24 hr 01/16/23 09:45: Diff Path Review Reviewed 01/17/23 05:10: Diff Path Review Reviewed 01/18/23 06:47: WBC 14.8 H, RBC 3.18 L, Hgb 8.9 L, Hct 28.5 L, MCV 89.6, MCH 28.0, MCHC 31.2 L D, RDW Std Deviation 61.3 H, RDW Coeff of Rola 18.6 H, Plt Count 499 H, MPV 8.8, Immature Gran % (Auto) 3.900 H, Neut % (Auto) 83.6 H, Lymph % (Auto) 7.6 L, [place] % (Auto) 3.5, Eos % (Auto) 1.1, Baso % (Auto) 0.3, Absolute Neuts (auto) 12.4 H, Absolute Lymphs (auto) 1.12, Nucleated RBC % 0, PT 15.7 H, INR 1.3, APTT 40.9 H, Sodium 133 L, Potassium 3.4 L, Chloride 96 L, Carbon Dioxide 29.0, Anion Gap 8, BUN 41 H, Creatinine 0.90, Estim Creat Clear Calc 92.21, Est GFR (MDRD) Af Amer 110, Est GFR (MDRD) Non-Af 91, BUN/Creatinine Ratio 45.6 H, Glucose 111 H, Calcium 9.5, Magnesium 1.9 01/18/23 09:41: Troponin I High Sens 112 H 01/18/23 11:20: Troponin I High Sens 273 H* 01/18/23 13:10: Lactic Acid 3.1 H* 01/18/23 13:30: POC Glucose 114 H Microbiology: Microbiology 01/18/23 04:36 Stool Stool Occult Blood (JUAN M) - Final Occult Blood Positive 01/17/23 15:51 Stool Stool Occult Blood (JUAN M) - Final Occult Blood Positive ABG: ABG 01/18/23 13:42 Specimen Type ART Sample Site L Brach pH 7.43 Bicarbonate Actual 27.7 H Total CO2 29 Base Excess 3 H O2 Saturation 97 O2 % 3.0 ABG pCO2 41.8 ABG pO2 86 O2 Delivery Device Cannula Vent Mode Not entered Radiography Diagnostic Testing: Radiology Impression Venous Doppler Study 01/16/23 15:47 Interpretation Summary Deep veins of the bilateral lower extremities are patent and compressible segmentally. There is no evidence of bilateral lower extremity deep vein thrombosis. The bilateral great saphenous veins appear patent and compressible segmentally. Ordering Physician: Dominique Hilliard Performed By: Ruben Duncan, RVT X-Ray 01/17/23 18:24 IMPRESSION: Pump device in the left lower quadrant. Correlation with specific device type and activity recommended prior to MRI scanning. The patient is not cleared for MRI. Electronically Signed: Matthew Jackson MD at 18:59 EDT , Chest X-Ray 01/18/23 08:55 IMPRESSION: Mild increased markings at the left lung base suggestive of atelectasis and/or early infiltrate Electronically Signed: Joseph Flores MD at 9:46 EDT , Pelvis MRI 01/18/23 09:30 IMPRESSION: 2 large fluid collections in the proximal right lower extremity as described above. Collections are compatible with large abscesses with complex fluid collections in both. For confirmation of infection, ultrasound-guided aspiration of one or both of these could be performed. Electronically Signed: Kaiden Chamberlain MD at 11:48 EDT , Chest X-Ray 01/18/23 15:25 IMPRESSION: The tip of the left sided central catheter is in the midportion of the left brachiocephalic vein. The lungs are unchanged. Electronically Signed: Joseph Flores MD at 15:50 EDT , Meaningful Use Info Meaningful Use Diagnoses (Choose all that apply): None applicable Discharge Plan Admission Admit Date/Time: 01/15/23 11:37 Primary Reason for Your Visit: Weakness/debility/lower extremity edema Attending Provider: Dominique Hilliard Primary Care Provider: Ryan Welch Consulting Providers: Lauren Loco; Maico Spence; Diaz Saldaña; Fortino Cruz; Clifford Ernst; Luis Fernando Brooks; Ben Graham; Babak Villa; Lul Munoz; Ritu Hugo NP Discharge Orders/Prescriptions Prescriptions: No Action amlodipine 10 mg tablet 10 mg PO DAILY Patient Comments: TAKE ONE TABLET BY MOUTH ONCE DAILY baclofen 10 mg tablet 5 mg PO BID Patient Comments: TAKE 1/2 TABLET BY MOUTH TWICE DAILY chlorthalidone 25 mg tablet 25 mg PO DAILY Patient Comments: TAKE ONE TABLET BY MOUTH ONCE DAILY diazepam 5 mg tablet 5 mg PO QHS PRN (Reason: sleep) Patient Comments: TAKE ONE TABLET BY MOUTH ONCE DAILY NEEDED famotidine 40 mg tablet 20 mg PO DAILY Patient Comments: TAKE ONE TABLET BY MOUTH DAILY AT BEDTIME gabapentin 100 mg capsule 200 mg PO BID Patient Comments: TAKE TWO CAPSULES BY MOUTH TWICE DAILY silver sulfadiazine 1 % cream 1 applic TOPICAL DAILY Patient Comments: APPLY TO THE AFFECTED AREA(S) ONCE DAILY FOR 21 DAYS tizanidine 2 mg tablet 2 mg PO BID Patient Comments: TAKE ONE TABLET BY MOUTH TWICE DAILY tramadol 50 mg tablet 50 mg PO BID Patient Comments: TAKE ONE TABLET BY MOUTH TWICE DAILY NEEDED FOR PAIN FOR UP TO 90 DAYS furosemide [Lasix] 40 mg tablet 40 mg PO DAILY Qty: 4 0RF Referrals / Follow Up: Vj Centeno MD [Non-Staff] - Ryan Welch MD [Primary Care Provider] - Disposition Disposition (needs filled in before D/C Order can be placed): Acute Care Hospital Charges/Coding Visit Charges Inpatient E&M: 57250 Disch Hosp >30min
[2023-01-18 17:16] LABS: Reflex Lactate? Y
--- NOTE | 2023-01-18 18:31 | EX.PCM.PN.GI ---
Subjective Subjective Patient was sent up to the ICU overnight due to fever, worsening white count and change in auto mental status. Objective Data Objective Data Vital Signs: Vital Signs Temp Pulse Resp BP Pulse Ox O2 Del Method O2 Flow Rate 97.9 F 69 16 102/49 L 100 Nasal Cannula 4 01/18/23 13:30 01/18/23 15:30 01/18/23 15:00 01/18/23 15:30 01/18/23 15:00 01/18/23 15:00 01/18/23 15:00 Oxygen Flow Rate (L/min) 4 Oxygen Delivery Method Nasal Cannula Weight: 274 lb 11.135 oz Body Mass Index (BMI) 37.2 Intake & Output: Intake and Output for Last 24 Hours 01/16/23 01/17/23 01/18/23 23:59 23:59 23:59 Intake Total 500 / 500 1135 / 4135 7680.97 / 7680.97 Output Total 1800 / 1800 1750 / 2350 1850 / 1850 Balance -1300 / -1300 -615 / 1785 5830.97 / 5830.97 Medical Nutrition Assessment Dietitian: Malnutrition Criteria Met Start: 01/15/23 14:54 Freq: Status: Active Protocol: Document 01/18/23 14:12 AG (Rec: 01/18/23 14:12 AG [id number]) Nutrition Malnutrition Evidence of Malnutrition Exists Yes Malnutrition (moderate): Acute Illness/Injury Evidenced By Suboptimal Energy Intake ( Moderate),Weight Loss ( Moderate) Intake Problem Increased Nutrient Needs (specify) Etiology (protein) related to wound healing Signs/Symptoms as evidenced by open surgical wound on left upper thigh. Status Active Problem Clinical Problem Acute Disease or Injury Related Malnutrition Etiology related to physiological changes causing decreased oral intakes Signs/Symptoms as evidenced by poor oral intakes of less than 75% of estimated nutrient needs x 1 week as well as significant weight loss of 1.5% in 4 days. Status Active Problem Recommendation Dietitian Recommendations/Changes When medically appropriate, recommend regular/sodium restricted diet; will continue David BID and Ensure Plus High Protein 120mL 4x/day w/ medpass Lab / Micro Data 01/18/23 06:47 01/18/23 06:47 Labs: Laboratory Results - last 24 hr 01/16/23 09:45: Diff Path Review Reviewed 01/17/23 05:10: Diff Path Review Reviewed 01/18/23 06:47: WBC 14.8 H, RBC 3.18 L, Hgb 8.9 L, Hct 28.5 L, MCV 89.6, MCH 28.0, MCHC 31.2 L D, RDW Std Deviation 61.3 H, RDW Coeff of Rola 18.6 H, Plt Count 499 H, MPV 8.8, Immature Gran % (Auto) 3.900 H, Neut % (Auto) 83.6 H, Lymph % (Auto) 7.6 L, [place] % (Auto) 3.5, Eos % (Auto) 1.1, Baso % (Auto) 0.3, Absolute Neuts (auto) 12.4 H, Absolute Lymphs (auto) 1.12, Nucleated RBC % 0, PT 15.7 H, INR 1.3, APTT 40.9 H, Sodium 133 L, Potassium 3.4 L, Chloride 96 L, Carbon Dioxide 29.0, Anion Gap 8, BUN 41 H, Creatinine 0.90, Estim Creat Clear Calc 92.21, Est GFR (MDRD) Af Amer 110, Est GFR (MDRD) Non-Af 91, BUN/Creatinine Ratio 45.6 H, Glucose 111 H, Calcium 9.5, Magnesium 1.9 01/18/23 09:41: Troponin I High Sens 112 H 01/18/23 11:20: Troponin I High Sens 273 H* 01/18/23 13:10: Lactic Acid 3.1 H* 01/18/23 13:30: POC Glucose 114 H Micro: Microbiology 01/18/23 04:36 Stool Stool Occult Blood (JUAN M) - Final Occult Blood Positive 01/17/23 15:51 Stool Stool Occult Blood (JUAN M) - Final Occult Blood Positive ABG Data ABG results: ABG 01/18/23 13:42 Specimen Type ART Sample Site L Brach pH 7.43 Bicarbonate Actual 27.7 H Total CO2 29 Base Excess 3 H O2 Saturation 97 O2 % 3.0 ABG pCO2 41.8 ABG pO2 86 O2 Delivery Device Cannula Vent Mode Not entered Radiography Diagnostic Testing: Radiology Impression KUB X-Ray 01/17/23 18:24 IMPRESSION: Pump device in the left lower quadrant. Correlation with specific device type and activity recommended prior to MRI scanning. The patient is not cleared for MRI. Electronically Signed: Matthew Jackson MD at 18:59 EDT , Chest X-Ray 01/18/23 08:55 IMPRESSION: Mild increased markings at the left lung base suggestive of atelectasis and/or early infiltrate Electronically Signed: Joseph Flores MD at 9:46 EDT , Pelvis MRI 01/18/23 09:30 IMPRESSION: 2 large fluid collections in the proximal right lower extremity as described above. Collections are compatible with large abscesses with complex fluid collections in both. For confirmation of infection, ultrasound-guided aspiration of one or both of these could be performed. Electronically Signed: Kaiden Chamberlain MD at 11:48 EDT , Chest X-Ray 01/18/23 15:25 IMPRESSION: The tip of the left sided central catheter is in the midportion of the left brachiocephalic vein. The lungs are unchanged. Electronically Signed: Joseph Flores MD at 15:50 EDT , Physical Exam Const alert and well nourished; Negative for oriented x3, no apparent distress, average body habitus, no limitations or healthy appearing Constitutional Narrative: Obese, white male, lying in bed, oriented to self and month but not location or year, appears toxic, nursing at bedside General Appearance: cooperative, well kempt, well developed, lethargic, ill appearing and diaphoretic; Negative for comfortable Orientation / Consciousness: awake and oriented to person Exam Limitations: altered mental status Nutritional Appearance: obese HEENT normocephalic, head/scalp atraumatic, hearing grossly normal bilaterally and moist oral mucous membranes HEENT Narrative: Mallampati 3, no thrush Eyes PERRL and EOMs intact bilaterally Eyes Narrative: Conjunctiva are mildly pale bilaterally, no scleral icterus Neck no lymphadenopathy and supple Neck Narrative: Trachea midline, no thyroid enlargement Resp no retractions, no use of accessory muscles and clear to auscultation bilaterally Resp Narrative: Tachypneic, mildly diminished at bases bilaterally Auscultation: Negative for rales, rhonchi or wheezes Cardio regular rhythm, S1 normal heart sound, S2 normal heart sound, no murmurs, no rub, no gallops and no clicks Cardio Narrative: Sinus tachycardia GI normal to inspection, nondistended, normoactive bowel sounds, soft to palpation and non-tender Extremity Extremity Narrative: Trace bilateral lower extremity edema improved, small abrasion on left knee that seems to be healing well, well-healing incision on right medial thigh from just above knee towards groin, no clubbing or cyanosis Skin no rashes or lesions noted, No no wounds and no jaundice Skin Narrative: Wounds per wound documentation noted and reviewed, pale skin and patient is diaphoretic Neuro CN's II-XII intact bilaterally Neuro Narrative: Extremity movement is intact without any pain, patient with T7 paraplegia, sensory deficits from T7 down as well, patient is confused Sensorium / Orientation: awake, alert and oriented to person; Negative for oriented to place or oriented to time Psych Psych Narrative: Significant confusion Assessment & Plan Assessment/Plan (1) Adult failure to thrive: (2) GI bleed: (3) Anemia: QUALIFIERS: Anemia type: iron deficiency Iron deficiency anemia type: unspecified iron deficiency Qualified Code(s): D50.9 - Iron deficiency anemia, unspecified PLAN: Plan Patient is a 62-year-old male with history of paraplegia, chronic Aguayo catheter, chronic wounds to right side of abdomen and leg, hypertension and GERD who presented to [facility] on 01/14/2023 with worsening bilateral lower extremity swelling and weakness. 1. Acute on chronic normocytic anemia Hemoglobin 8.2 on admit. Per outside records, baseline hemoglobin appears to be around 9-10. Hemoglobin was notably 10.6 in 11/2022, 9.5 in 08/2022. Decreased to hemoglobin 6.8 on 01/15. Suspect secondary to patient's known history of hemorrhoids, as patient reports moderate bleeding from hemorrhoids over the last 1 to 2 weeks. Iron studies consistent with anemia of chronic disease. Stool guaiac not yet completed. -S/p transfusion 1 unit of PRBCs today. Monitor CBC daily. 2. Hemorrhoidal bleeding-he has external hemorrhoids and may have internal hemorrhoids that may be able to be addressed during his colonoscopy. External hemorrhoids would have to be surgically removed. He is not stable to undergo any endoscopic procedure at this time. Charges/Coding Visit Charges Inpatient E&M: 04130 [facility] Hosp L3
== END 2023-01-18 18:35 | disposition short-term general hospital (02) | DRG 602 ==
LOC: ED 22:32 → PCU 22:44 → ICU 01-18 13:58
PROVIDERS: Anesthesiology; Internal Medicine Interventional Cardiology; Admitting Provider Family Medicine; Emergency Provider Emergency Medicine; PCP Internal Medicine; Visit Provider Internal Medicine
DX: L02.415 Cutaneous abscess of right lower limb (principal); A41.02 Sepsis due to Methicillin resistant Staphylococcus aureus; R65.21 Severe sepsis with septic shock; G93.41 Metabolic encephalopathy; I50.31 Acute diastolic (congestive) heart failure; E44.0 Moderate protein-calorie malnutrition; E87.20 Acidosis, unspecified; G82.21 Paraplegia, complete; I24.8 Other forms of acute ischemic heart disease; I47.1 Supraventricular tachycardia; D63.8 Anemia in other chronic diseases classified elsewhere; I11.0 Hypertensive heart disease with heart failure; E66.01 Morbid (severe) obesity due to excess calories; M60.852 Other myositis, left thigh; E88.09 Other disorders of plasma-protein metabolism, not elsewhere classified; K21.9 Gastro-esophageal reflux disease without esophagitis; I89.0 Lymphedema, not elsewhere classified; K64.4 Residual hemorrhoidal skin tags; E87.6 Hypokalemia; D75.838 Other thrombocytosis; D72.829 Elevated white blood cell count, unspecified; I44.7 Left bundle-branch block, unspecified; K64.8 Other hemorrhoids; I87.2 Venous insufficiency (chronic) (peripheral); Z68.37 Body mass index [BMI] 37.0-37.9, adult; R62.7 Adult failure to thrive; R53.81 Other malaise; R53.1 Weakness; R09.02 Hypoxemia; Z99.3 Dependence on wheelchair; Z97.8 Presence of other specified devices; Z66 Do not resuscitate; Z79.899 Other long term (current) drug therapy
CPT/HCPCS: 36415; 36600; 71045; 71275; 72197; 74018; 80048; 80053; 80061; 80076; 81001; 82274; 82550; 82607; 82728; 82746; 82803; 82962; 83540; 83550; 83605; 83735; 83880; 84100; 84145; 84443; 84484; 85014; 85018; 85025; 85379; 85610; 85652; 85730; 86140; 86850; 86900; 86901; 86920; 86922; 87040; 87077; 87086; 87088; 87186; 87641; 93005; 93306; 93970; 94668; 96374; 97162; 97166; 97530; 97535; 97802; 99284; A9575; J7030; J7040; J7050; J7120; P9016; P9047; Q9957; Q9967; A4216; C8929; J1940

== ENCOUNTER → 2023-04-24 | Outpatient (CLI) | payer OTHER, SELFPAY ==
--- NOTE | 2023-04-24 12:39 | MRI_ITS ---
STUDY: MRI LOWER EXTREMITY RIGHT THIGH WITH AND WITHOUT CONTRAST REASON FOR EXAM: Male, 62 years old. Right thigh, septic arthritis right hip. TECHNIQUE: Standardized fat and water weighted pulse sequences were obtained in all 3 orthogonal planes, post contrast administration. IV 25 mL Clariscan was administered for the contrast portion of the examination. COMPARISON: Pelvis MRI dated 01/18/2023. FINDINGS: The previously seen soft tissue abscesses are no longer present. There is mild increased STIR marrow signal in the right femoral neck and anterior aspect of the right femoral head, with preservation of the normal T1 marrow signal, compatible with mild marrow stress edema. There is no evidence of osteomyelitis. There is a moderate to large right hip joint effusion and a small left hip joint effusion. There is subcutaneous soft tissue edema along the lateral aspect of the right hip and along the anterior aspect of the right thigh. There is no discrete fluid collection or drainable abscess. There is diffuse atrophy and fatty infiltration of the muscles of the pelvis, hips and thighs. Normal quadriceps extensor mechanism with normal rectus femoris, vastus medialis, intermedius and lateralis muscles. Intact femur. There is no abnormal enhancing lesion. MRI/Lower Ext No Joint W/WO Cont IMPRESSION: Previously seen soft tissue abscesses no longer present. Mild marrow stress edema in the right femoral neck and anterior aspect of the right femoral head. No evidence of osteomyelitis. Moderate to large right hip joint effusion and small left hip joint effusion. Fine-needle aspiration would be required to assess for infection. Subcutaneous soft tissue edema along the lateral aspect of the right hip and along the anterior aspect of the right thigh. No discrete fluid collection or drainable abscess. Diffuse muscle atrophy. Electronically Signed: Saad Hilliard MD at 10:01 EST ,
[2023-04-24 13:28] LABS: CREATININE FINGERSTICK < 1.0 mg/dL (0.70-1.30); EGFR FINGERSTICK > 60.0000 mL/min (>60)
== END | disposition home or self-care (01) ==
PROVIDERS: PCP Internal Medicine
DX: L02.415 Cutaneous abscess of right lower limb (principal); M00.9 Pyogenic arthritis, unspecified
CPT/HCPCS: 73720; A9575